=== PATIENT | female | born 1935 ===

== ENCOUNTER 2016-11-07 11:20 | Emergency (ER) | payer MEDICARE ==
[2016-11-07 11:31] VITALS: TEMP 98.1
[2016-11-07 11:33] VITALS: BMI 22.6
[2016-11-07 11:38] VITALS: PULSE 66; RESP 18; O2SAT 98
--- NOTE | 2016-11-07 12:08 | C.PDOC ---
History Of Present Illness 80 y/o female presents to the ED with complains of swelling and pain to left AC area. Pt was in outpatient CT when the IV infiltrated causing pain and swelling , prompting ED visit. Pt denies trauma, fever, numbness, weakness or any other complaints. Time Seen by Provider: 11/07/16 11:44 Chief Complaint (Nursing): Upper Extremity Problem/Injury History Per: Patient History/Exam Limitations: no limitations Onset/Duration Of Symptoms: Mins Current Symptoms Are (Timing): Still Present Quality: "Pain" Severity: Mild Recent travel outside of the [place]: No Past Medical History Reviewed: Historical Data, Nursing Documentation, Vital Signs Vital Signs: Last Vital Signs Temp 98.1 F 11/07/16 11:33 Pulse 66 11/07/16 11:33 Resp 18 11/07/16 11:33 BP 164/81 H 11/07/16 11:33 Pulse Ox 98 11/07/16 12:10 - Medical History PMH: Diabetes, HTN, Hypercholesterolemia Family History: States: Unknown Family Hx - Social History Hx Tobacco Use: No Hx Alcohol Use: No Hx Substance Use: No - Immunization History Hx Tetanus Toxoid Vaccination: Yes Hx Influenza Vaccination: Yes Hx Pneumococcal Vaccination: Yes Review Of Systems Constitutional: Negative for: Fever, Chills Musculoskeletal: Positive for: Other (swelling and pain to left AC area) Neurological: Negative for: Weakness, Numbness Physical Exam - Physical Exam Appears: Non-toxic, No Acute Distress Skin: Warm, Dry, No Rash Head: Atraumatic, Normacephalic Chest: Symmetrical Cardiovascular: Rhythm Regular, No Murmur Respiratory: Normal Breath Sounds, No Rales, No Rhonchi, No Wheezing Extremity: Pedal Edema, Capillary Refill (<2 seconds), Other (IV in left AC with mild surrounding swelling. No erythema or fluctuance) Pulses: Left Radial: Normal Neurological/Psych: Oriented x3, Normal Speech, Normal Motor, Normal Sensation ED Course And Treatment O2 Sat by Pulse Oximetry: 98 (room air) Pulse Ox Interpretation: Normal Medical Decision Making Medical Decision Making: The arm exam appears to have small IV infiltration. Patient was instructed that it will take to re-absorb the fluid. Return to the Ed if there is any worsening. Disposition - Disposition Referrals: Deandre Winters Jr., MD [Staff Provider] - Disposition: HOME/ ROUTINE Disposition Time: 12:32 Condition: FAIR Additional Instructions: Follow up with the medical doctor within 1-2 days without fail. Return if worsened. Prescriptions: traMADol [Ultram] 50 mg PO Q6 PRN #20 tab PRN Reason: Pain Instructions: IV Infiltration (ED) - Clinical Impression Clinical Impression: IV infiltration - PA / FINANCIAL AID COUNSELOR / Resident Statement MD/DO has reviewed & agrees with the documentation as recorded. - Scribe Statement The provider has reviewed the documentation as recorded by the Scribe Austin Escobar All medical record entries made by the Scribe were at my direction and personally dictated by me. I have reviewed the chart and agree that the record accurately reflects my personal performance of the history, physical exam, medical decision making, and the department course for this patient. I have also personally directed, reviewed, and agree with the discharge instructions and disposition.
[2016-11-07] MEDS ORDERED: Oxycodone/Acetaminophen 5/325 mg Tab PO STA (12:21)
[2016-11-07] MEDS ORDERED: Oxycodone/Acetaminophen 5/325 mg Tab ONE (12:27)
[2016-11-07 12:43] VITALS: BP 158/77
== END 2016-11-07 12:45 | disposition home or self-care (01) ==
LOC: C.ER 11:20
DX: T80.89XA Other complications following infusion, transfusion and therapeutic injection, initial encounter (principal); Y84.8 Other medical procedures as the cause of abnormal reaction of the patient, or of later complication, without mention of misadventure at the time of the procedure

== ENCOUNTER 2016-12-06 15:03 | Emergency (ER) | payer MEDICARE ==
[2016-12-07 09:00] LABS: ALB/GLOB RATIO 1.1 (1.0-2.1); ALBUMIN 3.6 g/dL (3.5-5.0); CALCIUM 8.6 mg/dl (8.6-10.4)
[2016-12-07 09:01] LABS: BASO # 0.1 K/uL (0.0-0.2); BASO % 0.8 % (0.0-2.0); EOS # 0.2 K/uL (0.0-0.7); HEMOGLOBIN 12.5 g/dL (11.0-16.0); LYMPH # 1.2 K/uL (1.0-4.3); LYMPH % 14.4 % (20.0-40.0); MEAN CELL VOLUME 85.3 fL (81.0-99.0); MEAN CORPUSCULAR HEMOGLOBIN 28.5 pg (27.0-31.0); MEAN CORPUSCULAR HGB CONC 33.4 g/dL (33.0-37.0); MEAN PLATELET VOLUME 8.5 fL (7.2-11.7); MONO # 0.6 K/uL (0.0-0.8); MONO % 6.9 % (0.0-10.0); NEUT # 6.3 K/uL (1.8-7.0); NEUT % 75.9 % (50.0-75.0); NRBC % 0.1 % (0.0-2.0); RBC 4.38 Mil/uL (3.80-5.20); RED CELL DISTRIBUTION WIDTH 13.2 % (11.5-14.5); WHITE BLOOD COUNT 8.3 K/uL (4.8-10.8)
[2016-12-07 10:03] LABS: BARBITURATES, UR NEGATIVE (NEGATIVE); BENZODIAZEPINES, UR NEGATIVE (NEGATIVE)
[2016-12-07 10:06] LABS: OPIATES, UR NEGATIVE (NEGATIVE)
[2016-12-07 10:07] LABS: PHENCYCLIDINE, UR NEGATIVE (NEGATIVE)
[2016-12-07 10:11] LABS: SQUAMOUS EPITHIAL < 1 /hpf (0-5); URINE BACTERIA FEW (<OCC); URINE BILIRUBIN NEGATIVE (NEGATIVE); URINE BLOOD 1+ (NEGATIVE); URINE CLARITY Clear (Clear); URINE COLOR Yellow (YELLOW); URINE GLUCOSE (UA) 1+ mg/dL (Normal); URINE LEUKOCYTE ESTERASE TRACE Leu/uL (Negative); URINE NITRATE NEGATIVE (NEGATIVE); URINE PROTEIN 2+ mg/dL (NEGATIVE); URINE UROBILINOGEN NORMAL mg/dL (0.2-1.0)
--- NOTE | 2016-12-08 10:07 | CT ---
PROCEDURE: CT Abdomen and Pelvis with Oral contrast. HISTORY: Generalized abdominal pain. COMPARISON: None. TECHNIQUE: This CT exam was performed using one or more of the following dose reduction techniques: Automated exposure control, adjustment of the mA and/or kV according to patient size, and/or use of iterative reconstruction technique. The examination was performed at 5 mm increments using a helical acquisition from the dome of the diaphragm to the pubic symphysis without administration of intravenous contrast. Oral contrast was administered. Iterative reconstruction was used. Radiation dose: Total exam DLP = 636.03 mGy-cm. FINDINGS: Lung bases: There is subsegmental atelectasis/ scarring in the right lung base and lingula. There is dependent atelectasis in the posterior lungs. LIVER: Normal in size. No gross lesion or ductal dilatation. GALLBLADDER AND BILE DUCTS: No calcified gallstones. PANCREAS: Normal in size. No mass. No ductal dilatation. SPLEEN: Normal in size and appearance. ADRENALS: Both adrenal glands are normal in size without discrete nodule. KIDNEYS AND URETERS: Both kidneys are normal in size without hydronephrosis or nephrolithiasis. There is nonspecific perinephric fat stranding. BLADDER: Grossly normal in appearance. REPRODUCTIVE: The uterus is surgically absent. APPENDIX: No inflammatory changes in the right lower quadrant. BOWEL: The small bowel loops are normal in caliber. There is extensive left colonic diverticulosis without CT evidence for acute diverticulitis. PERITONEUM: No fluid collection. No free air. LYMPH NODES: No enlarged lymph nodes. VASCULATURE: There are atherosclerotic aortoiliac calcifications and an endovascular stent graft in the right common iliac artery. . No aortic aneurysm. BONES: No fracture or destructive lesion. Multilevel degenerative disc disease. OTHER FINDINGS: None. IMPRESSION: No acute abdominal or pelvic abnormality. Left colonic diverticulosis without CT evidence for acute diverticulitis. A preliminary report was provided by [facility].
== END 2016-12-06 19:00 | disposition home or self-care (01) ==
LOC: C.ER 15:03
DX: R10.12 Left upper quadrant pain (principal)
CPT/HCPCS: 74177; 80053; 81001; 85025; 96360; 99284; G0480; J7040

== ENCOUNTER 2017-01-02 12:04 | Inpatient (IN) | payer MEDICARE ==
[2017-01-02 12:05] VITALS: BMI 22.6
[2017-01-02 13:23] LABS: BASO # 0.1 K/uL (0.0-0.2); BASO % 0.8 % (0.0-2.0); EOS # 0.2 K/uL (0.0-0.7); EOS % 2.3 % (0.0-4.0); HEMOGLOBIN 11.9 g/dL (11.0-16.0); LYMPH % 11.6 % (20.0-40.0); MEAN CELL VOLUME 85.2 fL (81.0-99.0); MEAN CORPUSCULAR HEMOGLOBIN 29.1 pg (27.0-31.0); MEAN CORPUSCULAR HGB CONC 34.2 g/dL (33.0-37.0); MEAN PLATELET VOLUME 8.4 fL (7.2-11.7); MONO # 0.6 K/uL (0.0-0.8); MONO % 7.8 % (0.0-10.0); NEUT # 6.4 K/uL (1.8-7.0); NEUT % 77.5 % (50.0-75.0); NRBC % 0.2 % (0.0-2.0); RBC 4.09 Mil/uL (3.80-5.20); RED CELL DISTRIBUTION WIDTH 13.2 % (11.5-14.5); WHITE BLOOD COUNT 8.3 K/uL (4.8-10.8)
[2017-01-02 13:31] LABS: PROTHROMBIN TIME 11.3 SECONDS (9.7-12.2)
--- NOTE | 2017-01-02 13:35 | C.PDOC ---
History Of Present Illness 81 year old female, with a history of HTN and diabetes, presents to the emergency department with complaints of hematochezia and abdominal pain since yesterday at 5pm. As per son, patient had complaints of abdominal pain three weeks ago and had a CT scan performed that showed diverticulosis She notes blood in last four bowel movements since yesterday. Patient denies fever, dysuria, or other complaints at this time. Chief Complaint (Nursing): GI Problem History Per: Patient, Family (son) History/Exam Limitations: no limitations Onset/Duration Of Symptoms: Hrs (blood in stool since 5pm yesterday ), Days ( abdominal pain for three weeks) Current Symptoms Are (Timing): Still Present Number Of Bleeding Episodes: Multiple: (4 bowel movements with blood) Quality Of Discomfort: "Pain" Past Medical History Reviewed: Historical Data, Nursing Documentation, Vital Signs Vital Signs: Last Vital Signs Temp 98 F 01/02/17 12:18 Pulse 68 01/02/17 12:18 Resp 18 01/02/17 12:18 BP 145/75 01/02/17 12:18 Pulse Ox 100 01/02/17 14:39 - Medical History PMH: Diabetes, HTN, Hypercholesterolemia Family History: States: Unknown Family Hx - Social History Hx Tobacco Use: No Hx Alcohol Use: No Hx Substance Use: No - Immunization History Hx Tetanus Toxoid Vaccination: Yes Hx Influenza Vaccination: Yes Hx Pneumococcal Vaccination: Yes Review Of Systems Constitutional: Negative for: Fever, Chills Cardiovascular: Negative for: Chest Pain Respiratory: Negative for: Shortness of Breath Gastrointestinal: Positive for: Abdominal Pain, Hematochezia. Negative for: Nausea, Vomiting Physical Exam - Physical Exam Appears: Non-toxic, No Acute Distress Skin: Warm, Dry Head: Atraumatic Eye(s): bilateral: Normal Inspection, PERRL, EOMI Oral Mucosa: Moist Gingiva: Other (sutures to the left lower gingiva ) Neck: Supple Chest: Symmetrical, No Deformity Cardiovascular: Rhythm Regular Respiratory: Normal Breath Sounds, No Rhonchi, No Wheezing Gastrointestinal/Abdominal: Bowel Sounds (good bowel sounds ), Soft, Tenderness (diffuse tenderness concentrated in LLQ), No Distention, No Guarding, No Rebound Rectal: Other (gross blood ) Back: CVA Tenderness (mild left CVA tenderness ), Other (Kyphosis ) Extremity: Normal ROM, No Tenderness, Capillary Refill (good capillary refill, less than 2 seconds), No Swelling Neurological/Psych: Oriented x3, Normal Speech, Normal Cognition, Normal Cranial Nerves, Normal Motor, Normal Sensation, Normal Reflexes Gait: Steady ED Course And Treatment - Laboratory Results Result Diagrams: 01/02/17 13:10 01/02/17 13:10 O2 Sat by Pulse Oximetry: 100 (room air ) Medical Decision Making Medical Decision Making: message left for Dr Peña discussed with Dr Peña; will admit to his service. will call Dr Salazar for GI consult. discussed with Dr Jacome , covering for Dr Salazar. Disposition Discussed With Dr.: Sarbjit Peña Doctor Will See Patient In The: Hospital - Disposition Disposition: HOSPITALIZED Disposition Time: 14:37 Condition: SERIOUS - Clinical Impression Clinical Impression: Acute lower gastrointestinal bleeding, UTI (urinary tract infection), Abdominal pain - Scribe Statement The provider has reviewed the documentation as recorded by the Scribe Jacqueline Plasencia All medical record entries made by the Scribe were at my direction and personally dictated by me. I have reviewed the chart and agree that the record accurately reflects my personal performance of the history, physical exam, medical decision making, and the department course for this patient. I have also personally directed, reviewed, and agree with the discharge instructions and disposition. Decision To Admit - Pt Status Changed To: Hospital Disposition Of: Inpatient - Admit Certification Admit to Inpatient:: After my assessment, the patient will require hospitalization for at least two midnights. This is because of the severity of symptoms shown, intensity of services needed, and/or the medical risk in this patient being treated as an outpatient. - InPatient: Physician Admission Certification: I certify that this patient requires 2 or more midnights of care for the following reason:: gi bleed - . Bed Request Type: Regular Patient Diagnosis: Acute lower gastrointestinal bleeding, UTI (urinary tract infection), Abdominal pain
[2017-01-02 13:57] LABS: ALBUMIN 3.5 g/dL (3.5-5.0)
[2017-01-02 14:00] LABS: CALCIUM 8.6 mg/dl (8.6-10.4)
[2017-01-02 14:06] LABS: SQUAMOUS EPITHIAL 7 /hpf (0-5); URINE BACTERIA OCC (<OCC); URINE BILIRUBIN NEGATIVE (NEGATIVE); URINE BLOOD NEGATIVE (NEGATIVE); URINE CLARITY Hazy (Clear); URINE COLOR Yellow (YELLOW); URINE GLUCOSE (UA) 1+ mg/dL (Normal); URINE HYALINE CAST 0-2 /lpf (0-2); URINE LEUKOCYTE ESTERASE 2+ Leu/uL (Negative); URINE NITRATE NEGATIVE (NEGATIVE); URINE PROTEIN 2+ mg/dL (NEGATIVE); URINE UROBILINOGEN NORMAL mg/dL (0.2-1.0)
--- NOTE | 2017-01-02 17:56 | CP.PCM.CON ---
<Sal Benson - Last Filed: 01/02/17 17:56> History of Present Illness - History of Present Illness History of Present Illness: PGY4 Initial GI consult Dorothy Charlton is a 81M w/ hx of ovarian ca s/p total hysterectomy, HTN, DM, PVD, Diverticulosis who presents to the ED with complains of LLQ pain and BRBPR. Pt states that the pain started 2 months ago. Location LLQ. She states that pain is intermittant, with slight worsening post-prandial. Denies any alleviating factors. Pt states that she came to the Er [address] of the abd was performed and pt was discharged and found to have diverticulosis. Pt was told to take stool softners. Pt states for the past 3 weeks her abd pain has gradually worsened. She states her pain is a 8 out of 10. She then noticed BRBPR yesterday. She states she had x4 BM with BRB mixed in and formed brown stool. Pt denies any previous episode of BRBPR and LLQ pain. Her last colonoscopy was in the 80's or 90's and cannot recall the results. 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, + smoking hx for 30+ years and could quantify amount Endo hx: states that she may have had one in the 80's or 90's unsure of the results Past Patient History - Infectious Disease Hx of Infectious Diseases: None - Past Social History Smoking Status: Never Smoked - CARDIAC Hx Hypercholesterolemia: Yes Hx Hypertension: Yes - ENDOCRINE/METABOLIC Hx Diabetes Mellitus Type 2: Yes - PSYCHIATRIC Hx Substance Use: No - SURGICAL HISTORY Hx Surgeries: Yes Hx Vascular Surgery: Yes - ANESTHESIA Hx Anesthesia: Yes Meds Allergies/Adverse Reactions: Allergies Allergy/AdvReac Type Severity Reaction Status Date / Time cilostazol Allergy Verified 11/07/16 11:40 ramipril AdvReac Severe Verified 11/07/16 11:41 - Medications Medications: Current Medications Amlodipine Besylate (Norvasc) 10 mg PO DAILY [facility] Escitalopram Oxalate (Lexapro) 10 mg PO DAILY [facility] Lisinopril (Zestril) 10 mg PO DAILY [facility] Nitrofurantoin Macrocrystals (Macrobid) 100 mg PO Q12H [facility] Last Admin: 01/02/17 14:54 Dose: 100 mg Pantoprazole Sodium (Protonix Ec Tab) 40 mg PO DAILY [facility] Physical Exam - Head Exam Head Exam: ATRAUMATIC, NORMOCEPHALIC - Eye Exam Eye Exam: Normal appearance - ENT Exam ENT Exam: Mucous Membranes Moist, Normal Exam - Respiratory Exam Respiratory Exam: Clear to Auscultation Bilateral, NORMAL BREATHING PATTERN. absent: Rales, Rhonchi, Wheezes - Cardiovascular Exam Cardiovascular Exam: REGULAR RHYTHM, +S1, +S2 - GI/Abdominal Exam GI & Abdominal Exam: Normal Bowel Sounds. absent: Distended, Guarding, Organomegaly, Rebound, Rigid - Extremities Exam Extremities exam: Positive for: normal inspection - Neurological Exam Neurological exam: Alert, Oriented x3 - Psychiatric Exam Psychiatric exam: Normal Affect, Normal Mood - Skin Skin Exam: Dry, Intact, Normal Color, Warm Results - Vital Signs Recent Vital Signs: Last Vital Signs Temp 98.8 F 01/02/17 15:39 Pulse 66 01/02/17 15:39 Resp 20 01/02/17 15:39 BP 133/72 01/02/17 15:39 Pulse Ox 100 01/02/17 15:39 - Labs Result Diagrams: 01/02/17 13:10 01/02/17 13:10 Labs: Laboratory Results - last 24 hr 01/02/17 16:41 POC Glucose (mg/dL) 145 H Assessment & Plan - Assessment and Plan (Free Text) Assessment: Dorothy Charlton is a 81F w/ hx of PVD and diverticulosis who presents with abd pain and BRBPR. Etiology included diverticular bleed with/without some degree of diverticulitis, ischemic colitis, AVM, hemorrhoidal Assessment: Abd pain, LLQ Lower GI bleed hx of constipation Plan clear liquid diet for now hgb stable around 11 repeat cbc in the AM no need for repeat Ct abd at this time, if abd pain worsened or pt becomes febrile, may order a Ct of abd to eval w/o IV contrast If bleeding worsened will consider an inpt colonoscopy Observe for now Continue Protonix 40mg daily Hold all anticoag and ASA for now Pain management as per primary team D/W Dr. Fields <Sudhir Fields - Last Filed: 01/02/17 19:34> Meds - Medications Medications: Current Medications Amlodipine Besylate (Norvasc) 10 mg PO DAILY [facility] Escitalopram Oxalate (Lexapro) 10 mg PO DAILY [facility] Lisinopril (Zestril) 10 mg PO DAILY [facility] Nitrofurantoin Macrocrystals (Macrobid) 100 mg PO Q12H [facility] Last Admin: 01/02/17 14:54 Dose: 100 mg Pantoprazole Sodium (Protonix Ec Tab) 40 mg PO DAILY [facility] Results - Vital Signs Recent Vital Signs: Last Vital Signs Temp 98.8 F 01/02/17 15:39 Pulse 66 01/02/17 15:39 Resp 20 01/02/17 15:39 BP 133/72 01/02/17 15:39 Pulse Ox 100 01/02/17 19:10 - Labs Result Diagrams: 01/02/17 18:00 01/02/17 13:10 Labs: Laboratory Results - last 24 hr 01/02/17 01/02/17 16:41 18:00 WBC 8.1 RBC 3.92 Hgb 11.2 Hct 33.5 L MCV 85.5 MCH 28.6 MCHC 33.4 RDW 13.1 Plt Count 229 MPV 8.2 POC Glucose (mg/dL) 145 H Attending/Attestation - Attestation I have personally seen and examined this patient.: Yes I have fully participated in the care of the patient.: Yes I have reviewed all pertinent clinical information: Yes Notes (Text): 01/02/17 19:32 81 year old female who presents with LLQ pain and rectal bleeding, with h/o diverticulosis. 1. Rectal bleeding 2. Diverticulosis 3. Constipation Plan: -recommend supportive measures -bleeding seems to be mild, hgb normal -monitor for further bleeding -monitor serial cbc -possible diverticular bleed vs hemorrhoids -bowel regimen -recent CT without diverticulitis -no fever/wbc -abdominal exam unremarkable -will follow
[2017-01-02 18:19] LABS: HEMOGLOBIN 11.2 g/dL (11.0-16.0); MEAN CELL VOLUME 85.5 fL (81.0-99.0); MEAN CORPUSCULAR HEMOGLOBIN 28.6 pg (27.0-31.0); MEAN CORPUSCULAR HGB CONC 33.4 g/dL (33.0-37.0); MEAN PLATELET VOLUME 8.2 fL (7.2-11.7); RBC 3.92 Mil/uL (3.80-5.20); RED CELL DISTRIBUTION WIDTH 13.1 % (11.5-14.5); WHITE BLOOD COUNT 8.1 K/uL (4.8-10.8)
--- NOTE | 2017-01-02 22:31 | CP.PCM.CON ---
History of Present Illness - History of Present Illness History of Present Illness: REASON FOR CONSULT : CKD WITH eGFR AROUND 40 ML/M METABOLIC BONE DISEASE AND 2NDARY HYPERPARATHYROIDISM I SAW PT IN ER .. D/W HER SON AT LENGTH .. REASSURED HIM ABOUT THE RENAL FUNCTION AND STABLE LABS PT IS WELL KNOWN TO ME FROM OFFICE VISSITS FOR MILD CKD .. BASELINE eGFR ABOUT 40 ML/M RENAL FUNCTION IS AT BASELINE oDrothy Charlton is a 81M w/ hx of ovarian ca s/p total hysterectomy, HTN, DM, PVD, Diverticulosis who presents to the ED with complains of LLQ pain and BRBPR. Pt states that the pain started 2 months ago. Location LLQ. She states that pain is intermittant, with slight worsening post-prandial. Denies any alleviating factors. Pt states that she came to the Er [address] of the abd was performed and pt was discharged and found to have diverticulosis. Pt was told to take stool softners. Pt states for the past 3 weeks her abd pain has gradually worsened. She states her pain is a 8 out of 10. She then noticed BRBPR yesterday. She states she had x4 BM with BRB mixed in and formed brown stool. Pt denies any previous episode of BRBPR and LLQ pain. Her last colonoscopy was in the 80's or 90's and cannot recall the results. 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, + smoking hx for 30+ years and could quantify amount Endo hx: states that she may have had one in the 80's or 90's unsure of the results Past Patient History - Infectious Disease Hx of Infectious Diseases: None - Past Medical History & Family History Past Medical History?: Yes - Past Social History Smoking Status: Never Smoked - CARDIAC Hx Hypercholesterolemia: Yes Hx Hypertension: Yes - ENDOCRINE/METABOLIC Hx Diabetes Mellitus Type 2: Yes - MUSCULOSKELETAL/RHEUMATOLOGICAL Hx Falls: No - PSYCHIATRIC Hx Substance Use: No - SURGICAL HISTORY Hx Surgeries: Yes Hx Vascular Surgery: Yes - ANESTHESIA Hx Anesthesia: Yes Hx Anesthesia Reactions: No Meds Allergies/Adverse Reactions: Allergies Allergy/AdvReac Type Severity Reaction Status Date / Time cilostazol Allergy Verified 11/07/16 11:40 ramipril AdvReac Severe Verified 11/07/16 11:41 - Medications Medications: Current Medications Amlodipine Besylate (Norvasc) 10 mg PO DAILY [facility] Escitalopram Oxalate (Lexapro) 10 mg PO DAILY [facility] Lisinopril (Zestril) 10 mg PO DAILY [facility] Nitrofurantoin Macrocrystals (Macrobid) 100 mg PO Q12H [facility] Last Admin: 01/02/17 14:54 Dose: 100 mg Pantoprazole Sodium (Protonix Ec Tab) 40 mg PO DAILY [facility] Results - Vital Signs Recent Vital Signs: Last Vital Signs Temp 98.8 F 01/02/17 15:39 Pulse 66 01/02/17 15:39 Resp 20 01/02/17 15:39 BP 133/72 01/02/17 15:39 Pulse Ox 100 01/02/17 19:10 - Labs Result Diagrams: 01/02/17 18:00 01/02/17 13:10 Labs: Laboratory Results - last 24 hr 01/02/17 01/02/17 01/02/17 16:41 18:00 21:04 WBC 8.1 RBC 3.92 Hgb 11.2 Hct 33.5 L MCV 85.5 MCH 28.6 MCHC 33.4 RDW 13.1 Plt Count 229 MPV 8.2 POC Glucose (mg/dL) 145 H 175 H Assessment & Plan - Assessment and Plan (Free Text) Assessment: CKD .. RENAL FUNCTION STABLE .. eGFR AT HER BASELINE GI BLEED MULTIPLE CO MORBIDITIES P : C/O CURRENT CARE C/O PRESENT MEDS AVOID NEPHROTOXIC MEDS/ AGENTS DOSE MEDS AT eGFR OF 40 ML/M
--- NOTE | 2017-01-02 23:48 | CP.PCM.HP ---
History of Present Illness - History of Present Illness History of Present Illness: CC: per rectal bleed HPI: Dorothy Charlton is a 81M w/ hx of ovarian ca s/p total hysterectomy, HTN, DM, PVD,h/o pripr CVA, Diverticulosis who presents to the ED with complains of LLQ pain and BRBPR. Pt states that the pain started 2 months ago. Location LLQ. She states that pain is intermittant, with slight worsening post-prandial. Denies any alleviating factors. Pt states that she came to the Er [address] of the abd was performed and pt was discharged and found to have diverticulosis. Pt was told to take stool softners. Pt states for the past 3 weeks her abd pain has gradually worsened. She states her pain is a 8 out of 10. She then noticed BRBPR yesterday. She states she had x4 BM with BRB mixed in and formed brown stool. Pt denies any previous episode of BRBPR and LLQ pain. Her last colonoscopy was in the 80's or 90's and cannot recall the results. 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 [employer], denies Etoh and illicit drugs, + smoking hx for 30+ years and could quantify amount Endo hx: states that she may have had one in the 80's or 90's unsure of the results Present on Admission - Present on Admission Any Indicators Present on Admission: Yes Review of Systems - Review of Systems Systems not reviewed;Unavailable: Acuity of Condition - Constitutional Constitutional: Fatigue, Lethargy - EENT Eyes: absent: As Per HPI, Blind Spots, Blurred Vision, Change in Vision, Decreased Night Vision, Diplopia, Discharge, Dry Eye, Exophthalmos, Floaters, Irritation, Itchy Eyes, Loss of Peripheral Vision, Pain, Photophobia, Requires Corrective Lenses, Sees Flashes, Spots in Vision, Tunnel Vision, Other Visual Disturbances, Loss of Vision, Other Ears: absent: As Per HPI, Decreased Hearing, Ear Discharge, Ear Pain, Tinnitus, Abnormal Hearing, Disequilibrium, Dizziness, Other - Gastrointestinal Gastrointestinal: Abdominal Pain, Hematochezia. absent: As Per HPI, Belching, Bloating, Change in Bowel Habits, Change in Stool Character, Coffee Ground Emesis, Constipation, Cramping, Diarrhea, Dyspepsia, Dysphagia, Early Satiety, Excessive Flatus, Fecal Incontinence, Heartburn, Hematemesis, Loose Stools, Melena, Nausea, Odynophagia, Temesmus, Vomiting, Other - Genitourinary Genitourinary: absent: As Per HPI, Change in Urinary Stream, Difficulty Urinating, Dysuria, Flank Pain, Hematuria, Pyuria, Nocturia, Urinary Incontinence, Urinary Frequency, Urinary Hesitance, Urinary Urgency, Voiding Freq/Small Amts, Freq UTI, Hx Renal/Bladder Calculi, Hx /Renal Surgery, Bladder Distension, Other - Reproductive: Female Reproductive:Female: absent: As Per HPI, Amenorrhea, Amenorrhea/ Control, Currently Menstual, Cycle <21 Days, Cycle >35 Days, Cycle Variable, Menses 1-7 Days, Menses >/= 8 Days, Menses Variable, Cycle > 4 Weeks Between, No Menses for 6 Months, Heavy Menses, Light Menses, Normal Menses, Spotting Between Cycles , S/P Hysterectomy, Menopausal, Post Menopausal, Premenarche, Abnormal Vaginal Bleeding, Dysmenorrhea, Dyspareunia, Genital Lesions, Genital Pruritis, Pelvic Pain, Prolapse Symptoms, Sexual Dysfunction, Vaginal Discharge, Vaginal Dryness , Vaginal Odor, Vaginal Pruritis, Other - Endocrine Endocrine: absent: As Per HPI, Change in Body Appearance, Change in Libido, Cold Intolorance, Deepening of Voice, Excessive Sweating, Fatigue, Flushing, Heat Intolorance, Increase in Ring/Shoe/Hat Size, Palpitations, Polydipsia, Polyphagia, Polyuria, Other - Hematologic/Lymphatic Hematologic: absent: As Per HPI, Easy Bleeding, Easy Bruising, Lymphadenopathy, Other Past Patient History - Infectious Disease Hx of Infectious Diseases: None - Past Medical History & Family History Past Medical History?: Yes - Past Social History Smoking Status: Never Smoked - CARDIAC Hx Hypercholesterolemia: Yes Hx Hypertension: Yes - ENDOCRINE/METABOLIC Hx Diabetes Mellitus Type 2: Yes - MUSCULOSKELETAL/RHEUMATOLOGICAL Hx Falls: No - PSYCHIATRIC Hx Substance Use: No - SURGICAL HISTORY Hx Surgeries: Yes Hx Vascular Surgery: Yes - ANESTHESIA Hx Anesthesia: Yes Hx Anesthesia Reactions: No Meds Home Medications: Home Medication List Medication Instructions Recorded Confirmed Type Zolpidem [Ambien] 5 mg PO HS PRN #10 tab 01/05/17 Rx Allergies/Adverse Reactions: Allergies Allergy/AdvReac Type Severity Reaction Status Date / Time cilostazol Allergy Verified 11/07/16 11:40 ramipril AdvReac Severe Verified 11/07/16 11:41 Physical Exam - Constitutional Appears: No Acute Distress, Chronically Ill - Head Exam Head Exam: ATRAUMATIC, NORMAL INSPECTION, NORMOCEPHALIC - Eye Exam Eye Exam: EOMI, Normal appearance, PERRL Pupil Exam: NORMAL ACCOMODATION, PERRL - Respiratory Exam Respiratory Exam: Clear to Auscultation Bilateral, NORMAL BREATHING PATTERN - Cardiovascular Exam Cardiovascular Exam: REGULAR RHYTHM - GI/Abdominal Exam GI & Abdominal Exam: Normal Bowel Sounds, Soft. absent: Tenderness - Rectal Exam Additional comments: per rectal bleeding Results - Vital Signs Recent Vital Signs: Last Vital Signs Temp 98.5 F 01/02/17 16:35 Pulse 62 01/02/17 16:35 Resp 18 01/02/17 16:35 BP 145/89 01/02/17 16:35 Pulse Ox 100 01/02/17 19:10 - Labs Result Diagrams: 01/04/17 08:24 01/04/17 08:24 Labs: Laboratory Results - last 24 hr 01/02/17 01/02/17 01/02/17 16:41 18:00 21:04 WBC 8.1 RBC 3.92 Hgb 11.2 Hct 33.5 L MCV 85.5 MCH 28.6 MCHC 33.4 RDW 13.1 Plt Count 229 MPV 8.2 POC Glucose (mg/dL) 145 H 175 H Assessment & Plan (1) Bleeding per rectum Status: Acute (2) Abdominal pain Status: Acute (3) Acute lower gastrointestinal bleeding Assessment and Plan: HIDA sacn CT abdomen monitor pt on antibiotics Status: Acute
[2017-01-03 07:09] LABS: HEMOGLOBIN 11.3 g/dL (11.0-16.0); MEAN CELL VOLUME 85.6 fL (81.0-99.0); MEAN CORPUSCULAR HEMOGLOBIN 28.6 pg (27.0-31.0); MEAN CORPUSCULAR HGB CONC 33.4 g/dL (33.0-37.0); MEAN PLATELET VOLUME 8.3 fL (7.2-11.7); RBC 3.93 Mil/uL (3.80-5.20); RED CELL DISTRIBUTION WIDTH 13.4 % (11.5-14.5); WHITE BLOOD COUNT 9.3 K/uL (4.8-10.8)
[2017-01-03] MEDS: Pantoprazole 40 mg EC Tab PO SCH (09:54)
--- NOTE | 2017-01-03 13:57 | CP.PCM.PN ---
<Obinna Berger - Last Filed: 01/03/17 14:03> Subjective - Date & Time of Evaluation Date of Evaluation: 01/03/17 Time of Evaluation: 12:00 - Subjective Subjective: PGY5 GI Fellow Progress Note Patient seen and examined bedside this morning. The patient states that she is feeling better today and has not noted any BRBPR since last night. No new complaints. 12 system ROS performed and negative except where stated. Objective - Vital Signs/Intake and Output Vital Signs (last 24 hours): Temp Pulse Resp BP Pulse Ox 98.8 F 69 20 128/79 98 01/03/17 09:00 01/03/17 09:00 01/03/17 09:00 01/03/17 09:00 01/03/17 09:00 Intake and Output: 01/03/17 01/03/17 06:59 18:59 Intake Total 240 Balance 240 - Medications Medications: Current Medications Amlodipine Besylate (Norvasc) 10 mg PO DAILY [facility] Last Admin: 01/03/17 09:53 Dose: 10 mg Escitalopram Oxalate (Lexapro) 10 mg PO DAILY [facility] Last Admin: 01/03/17 09:53 Dose: 10 mg Insulin Aspart (Novolog) 0 unit SC ACHS [facility] PRN Reason: Protocol Lisinopril (Zestril) 10 mg PO DAILY [facility] Last Admin: 01/03/17 09:53 Dose: 10 mg Nitrofurantoin Macrocrystals (Macrobid) 100 mg PO Q12 [facility] Last Admin: 01/03/17 09:53 Dose: 100 mg Pantoprazole Sodium (Protonix Ec Tab) 40 mg PO DAILY [facility] Last Admin: 01/03/17 09:54 Dose: 40 mg - Labs Labs: 01/03/17 06:56 PT 11.3 SECONDS (9.7-12.2) 01/02/17 13:10 INR 1.0 01/02/17 13:10 APTT 27 SECONDS (21-34) 01/02/17 13:10 - Constitutional Appears: Non-toxic, No Acute Distress - Eye Exam Eye Exam: EOMI, PERRL - ENT Exam ENT Exam: Mucous Membranes Moist - Respiratory Exam Respiratory Exam: Clear to Ausculation Bilateral. absent: Rales, Rhonchi, Wheezes - Cardiovascular Exam Cardiovascular Exam: RRR, +S1, +S2 - GI/Abdominal Exam GI & Abdominal Exam: Soft, Normal Bowel Sounds. absent: Distended, Firm, Guarding, Rigid, Tenderness, Organomegaly - Extremities Exam Extremities Exam: Normal Inspection. absent: Pedal Edema - Neurological Exam Neurological Exam: Alert, Awake, Oriented x3 - Psychiatric Exam Psychiatric exam: Normal Affect, Normal Mood - Skin Skin Exam: Dry, Warm Assessment and Plan - Assessment and Plan (Free Text) Assessment: Patient is a 81yo female with PMHx significant for ovarian cancer s/p total hysterectomy, HTN, DM, PVD, diverticulosis who presented to the ED with LLQ pain and BRBPR -Hematochezia, suspect acute diverticular bleding -Diverticulosis -Constipation -H/O ovarian cancer Plan: -Continue supportive measures -HGB stable, unchanged over one month span -Recommend Miralax 17g PO QD -No need for repeat CT scan -Abdominal exam remains unchanged, unremarkable -Advance diet as tolerated, augment fiber intake -Likely OK to D/C tomorrow if patient remains stable <David Lombardi MD - Last Filed: 01/03/17 16:15> Objective - Vital Signs/Intake and Output Vital Signs (last 24 hours): Temp Pulse Resp BP Pulse Ox 98.8 F 69 20 128/79 98 01/03/17 09:00 01/03/17 09:00 01/03/17 09:00 01/03/17 09:00 01/03/17 09:00 Intake and Output: 01/03/17 01/03/17 06:59 18:59 Intake Total 240 Balance 240 - Medications Medications: Current Medications Amlodipine Besylate (Norvasc) 10 mg PO DAILY [facility] Last Admin: 01/03/17 09:53 Dose: 10 mg Escitalopram Oxalate (Lexapro) 10 mg PO DAILY [facility] Last Admin: 01/03/17 09:53 Dose: 10 mg Insulin Aspart (Novolog) 0 unit SC ACHS [facility] PRN Reason: Protocol Lisinopril (Zestril) 10 mg PO DAILY [facility] Last Admin: 01/03/17 09:53 Dose: 10 mg Nitrofurantoin Macrocrystals (Macrobid) 100 mg PO Q12 [facility] Pantoprazole Sodium (Protonix Ec Tab) 40 mg PO DAILY [facility] Last Admin: 01/03/17 09:54 Dose: 40 mg - Labs Labs: 01/03/17 06:56 PT 11.3 SECONDS (9.7-12.2) 01/02/17 13:10 INR 1.0 01/02/17 13:10 APTT 27 SECONDS (21-34) 01/02/17 13:10 Attending/Attestation - Attestation I have personally seen and examined this patient.: Yes I have fully participated in the care of the patient.: Yes I have reviewed all pertinent clinical information, including history, physical exam and plan: Yes Notes (Text): 01/03/17 16:13 Patient seen with GI fellow. This is a 81 yo female with PMHx significant for ovarian cancer s/p total hysterectomy, HTN, DM, PVD, diverticulosis who presented to the ED with LLQ pain and BRBPR now resolving. Likely diverticular bleed which is self resolving. Hb/Hct stable. Advance diet as tolerated. Will sign off now. Thank you for letting us participate in the care of your patient
[2017-01-03 17:32] LABS: HEMOGLOBIN 11.5 g/dL (11.0-16.0); MEAN CELL VOLUME 85.1 fL (81.0-99.0); MEAN CORPUSCULAR HEMOGLOBIN 28.5 pg (27.0-31.0); MEAN CORPUSCULAR HGB CONC 33.5 g/dL (33.0-37.0); MEAN PLATELET VOLUME 8.4 fL (7.2-11.7); RBC 4.03 Mil/uL (3.80-5.20); RED CELL DISTRIBUTION WIDTH 13.3 % (11.5-14.5); WHITE BLOOD COUNT 11.1 K/uL (4.8-10.8)
[2017-01-03] MEDS: (Novolog) Insulin Aspart, Recombinant 100 u/ml 10 ml vial SC SCH ×2 (17:48→21:48)
--- NOTE | 2017-01-03 22:45 | CP.PCM.PN ---
Subjective - Date & Time of Evaluation Date of Evaluation: 01/03/17 Time of Evaluation: 20:00 - Subjective Subjective: Pt seen and examined, is not currently bleeding H and H is stable at 11 i discussed with son, i hold hist aspirin, plavix and asked him to go to his PMD for further management of antiplatelet therapy Objective - Vital Signs/Intake and Output Vital Signs (last 24 hours): Temp Pulse Resp BP Pulse Ox 98.4 F 74 20 110/70 96 01/03/17 16:00 01/03/17 16:00 01/03/17 16:00 01/03/17 16:00 01/03/17 16:00 - Medications Medications: Current Medications Amlodipine Besylate (Norvasc) 10 mg PO DAILY [facility] Last Admin: 01/03/17 09:53 Dose: 10 mg Escitalopram Oxalate (Lexapro) 10 mg PO DAILY [facility] Last Admin: 01/03/17 09:53 Dose: 10 mg Insulin Aspart (Novolog) 0 unit SC ACHS [facility] PRN Reason: Protocol Last Admin: 01/03/17 21:48 Dose: 5 unit Lisinopril (Zestril) 10 mg PO DAILY [facility] Last Admin: 01/03/17 09:53 Dose: 10 mg Nitrofurantoin Macrocrystals (Macrobid) 100 mg PO Q12 [facility] Pantoprazole Sodium (Protonix Ec Tab) 40 mg PO DAILY [facility] Last Admin: 01/03/17 09:54 Dose: 40 mg Zolpidem Tartrate (Ambien) 5 mg PO HS PRN PRN Reason: Insomnia Last Admin: 01/03/17 22:18 Dose: 5 mg - Labs Labs: 01/03/17 17:23 PT 11.3 SECONDS (9.7-12.2) 01/02/17 13:10 INR 1.0 01/02/17 13:10 APTT 27 SECONDS (21-34) 01/02/17 13:10 - Constitutional Appears: No Acute Distress - Head Exam Head Exam: ATRAUMATIC, NORMAL INSPECTION, NORMOCEPHALIC - Eye Exam Eye Exam: EOMI, Normal appearance, PERRL Pupil Exam: NORMAL ACCOMODATION, PERRL - ENT Exam ENT Exam: Mucous Membranes Moist, Normal Exam - Cardiovascular Exam Cardiovascular Exam: REGULAR RHYTHM, +S1, +S2. absent: Murmur - GI/Abdominal Exam GI & Abdominal Exam: Soft, Normal Bowel Sounds. absent: Tenderness Assessment and Plan (1) Abdominal pain Status: Acute (2) Acute lower gastrointestinal bleeding Status: Acute (3) Bleeding per rectum Status: Acute (4) Diverticulosis Status: Acute
--- NOTE | 2017-01-03 22:46 | CP.PCM.PN ---
Subjective - Date & Time of Evaluation Date of Evaluation: 01/03/17 Time of Evaluation: 16:00 - Subjective Subjective: SEEN ON RENAL F/U ALL PREVIOUS EMR REVIEWED FEELS MUVH BETTER REPORTS NO MORE RECTEL BLEEDING .. NO MORE CRAMPY ABDO PAIN RENAL FUNCTION STABLE .. Objective - Vital Signs/Intake and Output Vital Signs (last 24 hours): Temp Pulse Resp BP Pulse Ox 98.4 F 74 20 110/70 96 01/03/17 16:00 01/03/17 16:00 01/03/17 16:00 01/03/17 16:00 01/03/17 16:00 - Medications Medications: Current Medications Amlodipine Besylate (Norvasc) 10 mg PO DAILY [facility] Last Admin: 01/03/17 09:53 Dose: 10 mg Escitalopram Oxalate (Lexapro) 10 mg PO DAILY [facility] Last Admin: 01/03/17 09:53 Dose: 10 mg Insulin Aspart (Novolog) 0 unit SC ACHS [facility] PRN Reason: Protocol Last Admin: 01/03/17 21:48 Dose: 5 unit Lisinopril (Zestril) 10 mg PO DAILY [facility] Last Admin: 01/03/17 09:53 Dose: 10 mg Nitrofurantoin Macrocrystals (Macrobid) 100 mg PO Q12 [facility] Pantoprazole Sodium (Protonix Ec Tab) 40 mg PO DAILY [facility] Last Admin: 01/03/17 09:54 Dose: 40 mg Zolpidem Tartrate (Ambien) 5 mg PO HS PRN PRN Reason: Insomnia Last Admin: 01/03/17 22:18 Dose: 5 mg - Labs Labs: 01/03/17 17:23 PT 11.3 SECONDS (9.7-12.2) 01/02/17 13:10 INR 1.0 01/02/17 13:10 APTT 27 SECONDS (21-34) 01/02/17 13:10 Assessment and Plan - Assessment and Plan (Free Text) Assessment: CKD .. STAGE 3 .. RENAL FUNCTION STABLE LOWER GIB .. BRBPR .. APPARENTLY STOPPED MULTIPLE CO MORBIDITIES P : C/O CURRENT CARE C/O PRESENT MANAGEMENT C/O ACEI FOR RENAL PROTECTIVE EFFECT
[2017-01-03 23:10] LABS: HEMOGLOBIN 10.6 g/dL (11.0-16.0); MEAN CELL VOLUME 84.9 fL (81.0-99.0); MEAN CORPUSCULAR HEMOGLOBIN 28.6 pg (27.0-31.0); MEAN CORPUSCULAR HGB CONC 33.7 g/dL (33.0-37.0); MEAN PLATELET VOLUME 8.5 fL (7.2-11.7); RBC 3.71 Mil/uL (3.80-5.20); RED CELL DISTRIBUTION WIDTH 12.8 % (11.5-14.5); WHITE BLOOD COUNT 11.2 K/uL (4.8-10.8)
[2017-01-04] MEDS: (Novolog) Insulin Aspart, Recombinant 100 u/ml 10 ml vial SC SCH ×4 (07:51→22:10)
[2017-01-04 08:37] LABS: HEMOGLOBIN 11.3 g/dL (11.0-16.0); MEAN CELL VOLUME 85.3 fL (81.0-99.0); MEAN CORPUSCULAR HEMOGLOBIN 28.9 pg (27.0-31.0); MEAN CORPUSCULAR HGB CONC 33.9 g/dL (33.0-37.0); MEAN PLATELET VOLUME 8.5 fL (7.2-11.7); RBC 3.9 Mil/uL (3.80-5.20); WHITE BLOOD COUNT 8.5 K/uL (4.8-10.8)
[2017-01-04 08:50] LABS: CALCIUM 8.6 mg/dl (8.6-10.4)
[2017-01-04] MEDS: Pantoprazole 40 mg EC Tab PO SCH (10:30)
--- NOTE | 2017-01-04 22:26 | CP.PCM.PN ---
Subjective - Date & Time of Evaluation Date of Evaluation: 01/04/17 Time of Evaluation: 16:00 - Subjective Subjective: Patient is seen and examined. Awake, alert, able to eat fair. Hemoglobin >10.0, no active bleeding, cleared by GI for discharge. Daughter at the bedside. Arranged for home care, home PT. Discharged home tommorow Advised to follow up in the office in 1 week. Objective - Vital Signs/Intake and Output Vital Signs (last 24 hours): Temp Pulse Resp BP Pulse Ox 98.9 F 62 20 108/63 98 01/04/17 15:00 01/04/17 15:00 01/04/17 15:00 01/04/17 15:00 01/04/17 15:00 Intake and Output: 01/04/17 01/05/17 18:59 06:59 Intake Total 0 Balance 0 - Medications Medications: Current Medications Amlodipine Besylate (Norvasc) 10 mg PO DAILY [facility] Last Admin: 01/04/17 10:32 Dose: Not Given Escitalopram Oxalate (Lexapro) 10 mg PO DAILY [facility] Last Admin: 01/04/17 10:29 Dose: 10 mg Insulin Aspart (Novolog) 0 unit SC ACHS [facility] PRN Reason: Protocol Last Admin: 01/04/17 22:10 Dose: Not Given Lisinopril (Zestril) 10 mg PO DAILY [facility] Last Admin: 01/04/17 10:30 Dose: 10 mg Nitrofurantoin Macrocrystals (Macrobid) 100 mg PO Q12 [facility] Pantoprazole Sodium (Protonix Ec Tab) 40 mg PO DAILY [facility] Last Admin: 01/04/17 10:30 Dose: 40 mg Zolpidem Tartrate (Ambien) 5 mg PO HS PRN PRN Reason: Insomnia Last Admin: 01/03/17 22:18 Dose: 5 mg - Labs Labs: 01/04/17 08:24 01/04/17 08:24 PT 11.3 SECONDS (9.7-12.2) 01/02/17 13:10 INR 1.0 01/02/17 13:10 APTT 27 SECONDS (21-34) 01/02/17 13:10 - Constitutional Appears: No Acute Distress - Head Exam Head Exam: ATRAUMATIC, NORMAL INSPECTION, NORMOCEPHALIC - Eye Exam Eye Exam: EOMI, Normal appearance, PERRL Pupil Exam: NORMAL ACCOMODATION, PERRL - Respiratory Exam Respiratory Exam: Clear to Ausculation Bilateral, NORMAL BREATHING PATTERN - Cardiovascular Exam Cardiovascular Exam: REGULAR RHYTHM, +S1, +S2. absent: Murmur - GI/Abdominal Exam GI & Abdominal Exam: Soft, Normal Bowel Sounds. absent: Tenderness Assessment and Plan (1) Abdominal pain Status: Acute (2) Acute lower gastrointestinal bleeding Status: Acute (3) Bleeding per rectum Status: Acute (4) Diverticulosis Status: Acute
[2017-01-05 00:45] VITALS: PULSE 63
[2017-01-05 08:20] VITALS: BP 116/67; RESP 21; TEMP 98; O2SAT 97
[2017-01-05] MEDS: (Novolog) Insulin Aspart, Recombinant 100 u/ml 10 ml vial SC SCH ×2 (08:22→11:42)
[2017-01-05] MEDS: Pantoprazole 40 mg EC Tab PO SCH (09:36)
--- NOTE | 2017-01-05 17:56 | CP.PCM.PN ---
Subjective - Date & Time of Evaluation Date of Evaluation: 01/05/17 Time of Evaluation: 11:00 - Subjective Subjective: Awake, alert, no acute distress or chest pains. Objective - Vital Signs/Intake and Output Vital Signs (last 24 hours): Temp Pulse Resp BP Pulse Ox 98 F 63 21 116/67 97 01/05/17 08:19 01/05/17 08:19 01/05/17 08:19 01/05/17 08:19 01/05/17 08:19 Intake and Output: 01/05/17 01/05/17 06:59 18:59 Intake Total 100 Balance 100 - Labs Labs: 01/04/17 08:24 01/04/17 08:24 PT 11.3 SECONDS (9.7-12.2) 01/02/17 13:10 INR 1.0 01/02/17 13:10 APTT 27 SECONDS (21-34) 01/02/17 13:10 Assessment and Plan - Assessment and Plan (Free Text) Assessment: Patient is seen and examined. Awake, alert, able to eat fair. Hemoglobin >10.0, no active bleeding, cleared by GI for discharge. Daughter at the bedside. Arranged for home care, home PT. Discharged home as per DR Peña. Advised to follow up in the office in 1 week.
--- NOTE | 2017-01-05 23:44 | CP.PCM.DIS ---
Provider - Provider Date of Admission: 01/02/17 14:33 Attending physician: Sarbjit Peña MD Time Spent in preparation of Discharge (in minutes): 45 Hospital Course - Lab Results Lab Results: Most Recent Lab Values WBC 8.5 K/uL (4.8-10.8) 01/04/17 08:24 RBC 3.90 Mil/uL (3.80-5.20) 01/04/17 08:24 Hgb 11.3 g/dL (11.0-16.0) 01/04/17 08:24 Hct 33.3 % (34.0-47.0) L 01/04/17 08:24 MCV 85.3 fL (81.0-99.0) 01/04/17 08:24 MCH 28.9 pg (27.0-31.0) 01/04/17 08:24 MCHC 33.9 g/dL (33.0-37.0) 01/04/17 08:24 RDW 13.0 % (11.5-14.5) 01/04/17 08:24 Plt Count 239 K/uL (130-400) 01/04/17 08:24 MPV 8.5 fL (7.2-11.7) 01/04/17 08:24 Neut % (Auto) 77.5 % (50.0-75.0) H 01/02/17 13:10 Lymph % (Auto) 11.6 % (20.0-40.0) L 01/02/17 13:10 [place] % (Auto) 7.8 % (0.0-10.0) 01/02/17 13:10 Eos % (Auto) 2.3 % (0.0-4.0) 01/02/17 13:10 Baso % (Auto) 0.8 % (0.0-2.0) 01/02/17 13:10 Neut # 6.4 K/uL (1.8-7.0) 01/02/17 13:10 Lymph # 1.0 K/uL (1.0-4.3) 01/02/17 13:10 [place] # 0.6 K/uL (0.0-0.8) 01/02/17 13:10 Eos # 0.2 K/uL (0.0-0.7) 01/02/17 13:10 Baso # 0.1 K/uL (0.0-0.2) 01/02/17 13:10 PT 11.3 SECONDS (9.7-12.2) 01/02/17 13:10 INR 1.0 01/02/17 13:10 APTT 27 SECONDS (21-34) 01/02/17 13:10 Sodium 134 mmol/L (132-148) 01/04/17 08:24 Potassium 4.8 mmol/L (3.6-5.2) 01/04/17 08:24 Chloride 98 mmol/L (98-107) 01/04/17 08:24 Carbon Dioxide 25 mmol/L (22-30) 01/04/17 08:24 Anion Gap 16 (10-20) 01/04/17 08:24 BUN 29 mg/dL (7-17) H 01/04/17 08:24 Creatinine 1.6 MG/DL (0.7-1.2) H 01/04/17 08:24 Est GFR ( Amer) 38 01/04/17 08:24 Est GFR (Non-Af Amer) 31 01/04/17 08:24 POC Glucose (mg/dL) 318 mg/dL (65-110) H 01/05/17 11:24 Random Glucose 222 mg/dL (65-105) H 01/04/17 08:24 Calcium 8.6 mg/dl (8.6-10.4) 01/04/17 08:24 Total Bilirubin 0.5 mg/dL (0.2-1.3) 01/02/17 13:10 AST 15 U/L (14-36) 01/02/17 13:10 ALT 19 U/L (9-52) 01/02/17 13:10 Alkaline Phosphatase 98 U/L (38-126) 01/02/17 13:10 Total Protein 6.8 g/dL (6.3-8.3) 01/02/17 13:10 Albumin 3.5 g/dL (3.5-5.0) 01/02/17 13:10 Globulin 3.3 gm/dL (2.2-3.9) 01/02/17 13:10 Albumin/Globulin Ratio 1.0 (1.0-2.1) 01/02/17 13:10 Urine Color Yellow (YELLOW) 01/02/17 13:10 Urine Clarity Hazy (Clear) 01/02/17 13:10 Urine pH 5.0 (5.0-8.0) 01/02/17 13:10 Ur Specific [place] 1.020 (1.003-1.030) 01/02/17 13:10 Urine Protein 2+ mg/dL (NEGATIVE) H 01/02/17 13:10 Urine Glucose (UA) 1+ mg/dL (Normal) 01/02/17 13:10 Urine Ketones Negative mg/dL (NEGATIVE) 01/02/17 13:10 Urine Blood Negative (NEGATIVE) 01/02/17 13:10 Urine Nitrate Negative (NEGATIVE) 01/02/17 13:10 Urine Bilirubin Negative (NEGATIVE) 01/02/17 13:10 Urine Urobilinogen Normal mg/dL (0.2-1.0) 01/02/17 13:10 Ur Leukocyte Esterase 2+ Margy/uL (Negative) H 01/02/17 13:10 Urine WBC (Auto) 80 /hpf (0-5) H 01/02/17 13:10 Urine RBC (Auto) 2 /hpf (0-3) 01/02/17 13:10 Ur Squamous Epith Cells 7 /hpf (0-5) H 01/02/17 13:10 Urine Bacteria Occ (<OCC) H 01/02/17 13:10 Hyaline Casts 0-2 /lpf (0-2) 01/02/17 13:10 Stool Occult Blood Positive (NEGATIVE) H 01/02/17 13:10 Blood Type B POSITIVE 01/02/17 13:10 Antibody Screen Negative 01/02/17 13:10 - Hospital Course Hospital Course: Patient is seen and examined. Awake, alert, able to eat fair. Hemoglobin >10.0, no active bleeding, cleared by GI for discharge. Daughter at the bedside. Arranged for home care, home PT. Discharged home today. Advised to follow up in the office in 1 week. Discharge Exam - Head Exam Head Exam: ATRAUMATIC, NORMOCEPHALIC Discharge Plan - Discharge Medications Prescriptions: Zolpidem [Ambien] 5 mg PO HS PRN #10 tab PRN Reason: Insomnia - Follow Up Plan Condition: SERIOUS Disposition: HOME/ ROUTINE Instructions: Zolpidem (By mouth), Gastrointestinal Bleeding (DC), Diverticulitis (DC), Diverticulosis (DC), Acute Abdominal Pain (DC)
== END 2017-01-05 14:52 | disposition home health service (06) | DRG 378 ==
LOC: C.ER 12:04 → C.9E 14:33 → C.3T 15:53
PROVIDERS: ADMIT Internal Medicine; ATTEND Internal Medicine
DX: K57.31 Diverticulosis of large intestine without perforation or abscess with bleeding (principal); N39.0 Urinary tract infection, site not specified; N25.81 Secondary hyperparathyroidism of renal origin; I12.9 Hypertensive chronic kidney disease with stage 1 through stage 4 chronic kidney disease, or unspecified chronic kidney disease; E11.22 Type 2 diabetes mellitus with diabetic chronic kidney disease; E11.51 Type 2 diabetes mellitus with diabetic peripheral angiopathy without gangrene; N18.3 Chronic kidney disease, stage 3 (moderate); K59.00 Constipation, unspecified; E78.00 Pure hypercholesterolemia, unspecified; Z85.43 Personal history of malignant neoplasm of ovary; Z86.73 Personal history of transient ischemic attack (TIA), and cerebral infarction without residual deficits; Z90.710 Acquired absence of both cervix and uterus

== ENCOUNTER 2017-01-30 12:06 | Inpatient (IN) | payer MEDICARE ==
[2017-01-30 12:06] VITALS: BMI 22.6
[2017-01-30 12:51] LABS: BASO % 0.3 % (0.0-2.0); EOS % 0.1 % (0.0-4.0); HEMATOCRIT 31.9 % (34.0-47.0); LYMPH # 0.2 K/uL (1.0-4.3); LYMPH % 1.5 % (20.0-40.0); MEAN CELL VOLUME 84.8 fL (81.0-99.0); MEAN CORPUSCULAR HEMOGLOBIN 27.7 pg (27.0-31.0); MEAN CORPUSCULAR HGB CONC 32.7 g/dL (33.0-37.0); MEAN PLATELET VOLUME 8.7 fL (7.2-11.7); MONO # 0.7 K/uL (0.0-0.8); MONO % 6.5 % (0.0-10.0); PLATELET COUNT 224 K/uL (130-400); RED CELL DISTRIBUTION WIDTH 13.6 % (11.5-14.5)
[2017-01-30 12:53] LABS: VENOUS BLOOD GAS PCO2 34 mmHg (40-60)
[2017-01-30 12:57] LABS: POTASSIUM 4.5 mmol/L (3.6-5.2)
[2017-01-30 12:59] LABS: BILIRUBIN,TOTAL 0.9 mg/dL (0.2-1.3)
[2017-01-30] MEDS ORDERED: Sodium Chloride 0.9% 500 ML IV ONE ×2 (12:59→13:05)
[2017-01-30 13:00] LABS: ALB/GLOB RATIO 0.9 (1.0-2.1); CALCIUM 8.6 mg/dl (8.6-10.4); TOTAL PROTEIN 6.8 g/dL (6.3-8.3)
[2017-01-30 13:13] LABS: NEUTROPHIL 83 % (50-75); TOTAL CELLS COUNTED 100
[2017-01-30 13:39] LABS: RBC URINE 4 /hpf (0-3); URINE BACTERIA MANY (<OCC); URINE BILIRUBIN NEGATIVE (NEGATIVE); URINE BLOOD 2+ (NEGATIVE); URINE COLOR Yellow (YELLOW); URINE GLUCOSE (UA) 2+ mg/dL (Normal); URINE KETONE NEGATIVE (NEGATIVE); URINE LEUKOCYTE ESTERASE 3+ Leu/uL (Negative); URINE PROTEIN 2+ mg/dL (NEGATIVE); URINE UROBILINOGEN NORMAL mg/dL (0.2-1.0); WBC CLUMPS FEW /hpf; WBC URINE 160 /hpf (0-5)
[2017-01-30] MEDS ORDERED: cefTRIAXone IV 1 gm in Dextros 50 ML IV STA (13:48)
[2017-01-30] MEDS ORDERED: cefTRIAXone IV 1 gm in Dextros 50 ML IVPB ONE (13:59)
--- NOTE | 2017-01-30 14:02 | C.PDOC ---
History Of Present Illness Patient BIBA for evaluation of fever & abdominal pain since thursday. As per son , patient had chills starting thursday, and she has had intermittent abdominal pain for the past 3-4 months. Patient is s/p colonoscopy by Dr. Anayeli Billingsley , study was not completed due to difficulty passing the scope all the way through (as per patient's son). He denies cough, runny nose, vomiting, duiarrhea, SOB. Time Seen by Provider: 01/30/17 12:23 Chief Complaint (Nursing): Weakness/Neurological Deficit History Per: Patient, Family Current Symptoms Are (Timing): Still Present Past Medical History Reviewed: Historical Data, Nursing Documentation, Vital Signs Vital Signs: Last Vital Signs Temp 98.6 F 02/04/17 13:20 Pulse 54 L 02/04/17 13:50 Resp 20 02/04/17 13:50 BP 147/58 L 02/04/17 13:50 Pulse Ox 98 02/04/17 13:50 - Medical History PMH: Diabetes, HTN, Hypercholesterolemia Family History: States: No Known Family Hx - Social History Hx Tobacco Use: No Hx Alcohol Use: No Hx Substance Use: No - Immunization History Hx Tetanus Toxoid Vaccination: Yes Hx Influenza Vaccination: Yes Hx Pneumococcal Vaccination: Yes Review Of Systems Except As Marked, All Systems Reviewed And Found Negative. Constitutional: Positive for: Fever, Chills Cardiovascular: Negative for: Chest Pain Respiratory: Negative for: Cough, Shortness of Breath Gastrointestinal: Positive for: Abdominal Pain. Negative for: Nausea, Vomiting , Diarrhea Skin: Negative for: Rash Physical Exam - Physical Exam Appears: Well, Non-toxic, In Acute Distress (in mild pain) Skin: Normal Color, Warm, Dry Oral Mucosa: Moist Cardiovascular: Rhythm Regular Respiratory: Rales (mild at B/L bases), No Rhonchi, No Wheezing Gastrointestinal/Abdominal: Bowel Sounds, Soft, Tenderness (mild diffuse TTP), No Distention, No Guarding, No Rebound Extremity: Normal ROM, No Pedal Edema ED Course And Treatment - Laboratory Results Result Diagrams: 02/04/17 06:29 02/03/17 11:23 ECG: Interpreted By Me, Viewed By Me (NSR 82 bpm, left axis deviation, LBBB, no acute ST changes) ECG Interpretation: Abnormal O2 Sat by Pulse Oximetry: 96 (RA) Pulse Ox Interpretation: Normal - Other Rad obs series X-Ray: Viewed By Me, Read By Radiologist (no air fluid levels) Progress Note: Blood work, UA, Obstructuve series ordered and reviewed. Patient given IV NS bolus, PO tylenol and IV rocephin. 14:20- Patient c/o itching, has urticarial rash - suspect rocephin allergy. IV rocephin stopped, IV benadryl and IV Ciprofloxacin ordered. - Physician Consult Information Physician Contacted: Sarbjit Peña Outcome Of Conversation: Discussed patient with Dr. Peña, agrees with admission for UTI, fever, dehydration, acute renal failure. Disposition - Disposition Disposition: HOSPITALIZED Disposition Time: 14:07 Condition: STABLE - Clinical Impression Clinical Impression: UTI (urinary tract infection), Acute renal failure, Fever, Dehydration Decision To Admit - Pt Status Changed To: Hospital Disposition Of: Inpatient - Admit Certification Admit to Inpatient:: After my assessment, the patient will require hospitalization for at least two midnights. This is because of the severity of symptoms shown, intensity of services needed, and/or the medical risk in this patient being treated as an outpatient. - InPatient: Physician Admission Certification: I certify that this patient requires 2 or more midnights of care for the following reason:: see notes - . Bed Request Type: Regular Admitting Physician: Sarbjit Peña Patient Diagnosis: UTI (urinary tract infection), Fever, Dehydration, Acute renal failure
--- NOTE | 2017-01-30 14:10 | RAD ---
PROCEDURE: Radiographs of the chest and abdomen (obstructive series) HISTORY: S/P COLONOSCOPY - UPRIGHT CHEST PLEASE COMPARISON: No prior. TECHNIQUE: AP radiograph of the chest, with upright and supine radiographs of the abdomen. FINDINGS: CHEST: Lungs: Clear. Cardiovascular: Normal size heart. No pulmonary vascular congestion. Pleura: No pleural fluid. No pneumothorax. Other findings: None. ABDOMEN AND PELVIS: Bowel: Unremarkable bowel gas pattern. No evidence of mechanical obstruction. Free air: None. Bones: Unremarkable. Other findings: There is an endovascular stent graft in the right common iliac artery. IMPRESSION: 1. Nonobstructive bowel-gas pattern. 2. Clear lungs.
[2017-01-30] MEDS ORDERED: DiphenhydrAMINE 50 mg/ml Inj ONE (14:30)
[2017-01-30] MEDS ORDERED: DiphenhydrAMINE 50 mg/ml Inj IVP STA (14:31)
[2017-01-30] MEDS ORDERED: Ciprofloxacin 400mg/200ml D5W 400 MG/200 ML BAG IV STA (14:34)
[2017-01-30] MEDS ORDERED: Ciprofloxacin 400mg/200ml D5W 400 MG/200 ML BAG IVPB ONE (14:54)
[2017-01-30] MEDS: Oxycodone/Acetaminophen 5/325 mg Tab PO PRN (21:48)
--- NOTE | 2017-01-31 00:23 | CP.PCM.HP ---
History of Present Illness - History of Present Illness History of Present Illness: 81 y/o hf with dm, htn ch. abdominal pain, she is s/p colonoscopy that was incomplete, an d she later on developed abdmonial pain, in lower abdomen diffuse with nausea, flatulense, dysuria, no cough, no hematuria Present on Admission - Present on Admission Any Indicators Present on Admission: No History of DVT/PE: No History of Uncontrolled Diabetes: No Urinary Catheter: No Decubitus Ulcer Present: No Review of Systems - Constitutional Constitutional: Anorexia, Chills, Malaise - EENT Eyes: Dry Eye - Gastrointestinal Gastrointestinal: Abdominal Pain, Belching, Bloating, Dyspepsia, Excessive Flatus - Genitourinary Genitourinary: Dysuria, Urinary Incontinence - Neurological Neurological: Abnormal Gait Past Patient History - Infectious Disease Hx of Infectious Diseases: None - Past Medical History & Family History Past Medical History?: Yes - Past Social History Smoking Status: Never Smoked - CARDIAC Hx Hypercholesterolemia: Yes Hx Hypertension: Yes - ENDOCRINE/METABOLIC Hx Diabetes Mellitus Type 2: Yes - MUSCULOSKELETAL/RHEUMATOLOGICAL Hx Falls: No - PSYCHIATRIC Hx Substance Use: No - SURGICAL HISTORY Hx Surgeries: Yes Hx Vascular Surgery: Yes (left leg) - ANESTHESIA Hx Anesthesia: Yes Hx Anesthesia Reactions: No Meds Allergies/Adverse Reactions: Allergies Allergy/AdvReac Type Severity Reaction Status Date / Time ceftriaxone [From Rocephin] Allergy Verified 01/30/17 15:25 cilostazol Allergy Verified 01/30/17 12:17 ramipril AdvReac Severe Verified 01/30/17 12:17 Physical Exam - Constitutional Appears: Non-toxic, In Acute Distress, Chronically Ill - Head Exam Head Exam: ATRAUMATIC, NORMAL INSPECTION, NORMOCEPHALIC - Eye Exam Eye Exam: EOMI, Normal appearance, PERRL Pupil Exam: NORMAL ACCOMODATION - ENT Exam ENT Exam: Mucous Membranes Moist, Normal Exam - Neck Exam Neck exam: Positive for: Normal Inspection - Respiratory Exam Respiratory Exam: NORMAL BREATHING PATTERN - Cardiovascular Exam Cardiovascular Exam: REGULAR RHYTHM, +S1, +S2 - GI/Abdominal Exam GI & Abdominal Exam: Normal Bowel Sounds, Soft, Tenderness - Rectal Exam Rectal Exam: NORMAL INSPECTION - Extremities Exam Extremities exam: Positive for: normal capillary refill, pedal pulses present - Back Exam Back exam: NORMAL INSPECTION - Psychiatric Exam Psychiatric exam: Normal Affect, Normal Mood - Skin Skin Exam: Intact Results - Vital Signs Recent Vital Signs: Last Vital Signs Temp 100.5 F H 01/30/17 19:20 Pulse 66 01/30/17 16:56 Resp 20 01/30/17 16:56 BP 136/61 01/30/17 16:56 Pulse Ox 99 01/30/17 16:56 - Labs Result Diagrams: 01/30/17 12:37 01/30/17 12:37 Labs: Laboratory Results - last 24 hr 01/30/17 01/30/17 16:38 21:02 POC Glucose (mg/dL) 291 H 279 H Assessment & Plan (1) Hypertension Status: Chronic Priority: Low (2) Diabetes mellitus Status: Chronic Priority: Low (3) Abdominal pain Status: Acute Priority: High (4) UTI (lower urinary tract infection) Status: Acute
[2017-01-31] MEDS: Ciprofloxacin 200mg/100ml D5W 100 ML IVPB SCH ×2 (02:40→15:23)
[2017-01-31] MEDS: (Novolog) Insulin Aspart, Recombinant 100 u/ml 10 ml vial SC SCH ×5 (08:12→22:39)
[2017-01-31] MEDS: Enoxaparin 40 mg Syringe SC SCH (09:46)
[2017-01-31] MEDS: (Lantus) Insulin Glargine, Recombinant SC SCH (09:47)
[2017-01-31] MEDS: Pantoprazole 40 mg EC Tab PO SCH (09:47)
[2017-01-31 11:43] LABS: BASO % 0.4 % (0.0-2.0); EOS % 0.2 % (0.0-4.0); HEMATOCRIT 30.9 % (34.0-47.0); LYMPH # 0.1 K/uL (1.0-4.3); LYMPH % 1.6 % (20.0-40.0); MEAN CELL VOLUME 84.4 fL (81.0-99.0); MEAN CORPUSCULAR HEMOGLOBIN 28.1 pg (27.0-31.0); MEAN CORPUSCULAR HGB CONC 33.3 g/dL (33.0-37.0); MEAN PLATELET VOLUME 8.7 fL (7.2-11.7); MONO # 0.4 K/uL (0.0-0.8); MONO % 5.9 % (0.0-10.0); PLATELET COUNT 206 K/uL (130-400); RED CELL DISTRIBUTION WIDTH 13.3 % (11.5-14.5); WHITE BLOOD COUNT 7.1 K/uL (4.8-10.8)
[2017-01-31 11:46] LABS: POTASSIUM 4.1 mmol/L (3.6-5.2)
[2017-01-31 11:48] LABS: ALB/GLOB RATIO 0.9 (1.0-2.1); BILIRUBIN,TOTAL 0.5 mg/dL (0.2-1.3); TOTAL PROTEIN 6.4 g/dL (6.3-8.3)
[2017-01-31 11:49] LABS: CALCIUM 8.6 mg/dl (8.6-10.4)
[2017-01-31] MEDS: Aztreonam 1 GM in Sodium Chloride 0.9% 100 ML IVPB SCH (12:24)
[2017-01-31 12:33] LABS: BASOPHIL 1 % (0-2); NEUTROPHIL 88 % (50-75); TOTAL CELLS COUNTED 100
[2017-01-31] MEDS: Sodium Chloride 0.9% 1,000 ML IV SCH (14:00)
--- NOTE | 2017-01-31 15:05 | CP.PCM.PN ---
Objective - Vital Signs/Intake and Output Vital Signs (last 24 hours): Temp Pulse Resp BP Pulse Ox 102 F H 85 22 151/68 H 99 01/31/17 14:50 01/31/17 14:50 01/31/17 14:50 01/31/17 09:55 01/31/17 14:50 Intake and Output: 01/31/17 01/31/17 06:59 18:59 Intake Total 200 Balance 200 - Medications Medications: Current Medications Acetaminophen (Tylenol 325mg Tab) 650 mg PO Q6 PRN PRN Reason: Fever >100.4 F Last Admin: 01/31/17 10:05 Dose: 650 mg Amlodipine Besylate (Norvasc) 10 mg PO DAILY [facility] Last Admin: 01/31/17 09:48 Dose: 10 mg Enoxaparin Sodium (Lovenox) 40 mg SC DAILY [facility] Last Admin: 01/31/17 09:46 Dose: 40 mg Escitalopram Oxalate (Lexapro) 10 mg PO DAILY [facility] Last Admin: 01/31/17 09:48 Dose: 10 mg Ciprofloxacin (Cipro 200mg/100ml D5w) 100 mls @ 67 mls/hr IVPB Q12H [facility] Last Admin: 01/31/17 02:40 Dose: 67 mls/hr Aztreonam 1 gm/ Sodium (Chloride) 100 mls @ 100 mls/hr IVPB Q12H [facility] Last Admin: 01/31/17 12:24 Dose: 100 mls/hr Sodium Chloride (Sodium Chloride 0.9%) 1,000 mls @ 80 mls/hr IV .[id number] [facility] Insulin Aspart (Novolog) 0 unit SC ACHS [facility] PRN Reason: Protocol Last Admin: 01/31/17 12:30 Dose: 3 unit Insulin Glargine (Lantus) 20 unit SC DAILY [facility] Last Admin: 01/31/17 09:47 Dose: 20 units Lisinopril (Zestril) 10 mg PO DAILY [facility] Last Admin: 01/31/17 09:48 Dose: 10 mg Oxycodone/Acetaminophen (Percocet 5/325 Mg Tab) 1 tab PO Q4H PRN PRN Reason: Pain, moderate (4-7) Stop: 02/02/17 21:15 Last Admin: 01/30/17 21:48 Dose: 1 tab Pantoprazole Sodium (Protonix Ec Tab) 40 mg PO DAILY [facility] Last Admin: 01/31/17 09:47 Dose: 40 mg Sitagliptin Phosphate (Januvia) 50 mg PO DAILY [facility] Last Admin: 01/31/17 12:23 Dose: 50 mg Zolpidem Tartrate (Ambien) 5 mg PO HS PRN PRN Reason: Insomnia Last Admin: 01/30/17 21:50 Dose: 5 mg - Labs Labs: 01/31/17 11:34 01/31/17 11:34 Assessment and Plan (1) Hypertension Status: Chronic (2) Diabetes mellitus Status: Chronic (3) Abdominal pain Status: Acute (4) UTI (lower urinary tract infection) Status: Acute
--- NOTE | 2017-01-31 20:02 | CARD ---
APPROVED REPORT EKG Measurement Heart [id number] <Conclusion> Normal sinus rhythm Left bundle branch block Abnormal ECG
[2017-02-01] MEDS: Aztreonam 1 GM in Sodium Chloride 0.9% 100 ML IVPB SCH ×3 (00:25→17:10)
[2017-02-01] MEDS: Ciprofloxacin 200mg/100ml D5W 100 ML IVPB SCH ×2 (02:11→14:19)
[2017-02-01] MEDS: Sodium Chloride 0.9% 1,000 ML IV SCH ×2 (08:01→15:50)
[2017-02-01] MEDS: (Novolog) Insulin Aspart, Recombinant 100 u/ml 10 ml vial SC SCH ×4 (08:09→21:36)
[2017-02-01] MEDS: Enoxaparin 40 mg Syringe SC SCH (09:29)
[2017-02-01] MEDS: Pantoprazole 40 mg EC Tab PO SCH (09:29)
[2017-02-01] MEDS: (Lantus) Insulin Glargine, Recombinant SC SCH (11:22)
--- NOTE | 2017-02-01 16:24 | CP.PCM.CON ---
History of Present Illness - History of Present Illness History of Present Illness: Patient BIBA for evaluation of fever, abdominal pain since thursday. As per son , patient had chills starting thursday, and she has had intermittent abdominal pain for the past 3-4 months. Patient is s/p colonoscopy by Dr. Anayeli Billingsley , study was not completed due to difficulty passing the scope all the way through (as per patient's son). He denies cough, runny nose, vomiting, duiarrhea, SOB. referred for ID eval/ antibiotic management c/o LUQ pain / discomfort weakness and fever denies diarrhea CT done shoed diverticulosis w/o diverticulitis 12/06/16 - Medical History PMH: Diabetes, HTN, Hypercholesterolemia Family History: States: No Known Family Hx Review of Systems - Review of Systems Systems not reviewed;Unavailable: Acuity of Condition, Altered Mental Status - Constitutional Constitutional: As Per HPI - EENT Eyes: absent: As Per HPI, Blind Spots, Blurred Vision, Change in Vision, Decreased Night Vision, Diplopia, Discharge, Dry Eye, Exophthalmos, Floaters, Irritation, Itchy Eyes, Loss of Peripheral Vision, Pain, Photophobia, Requires Corrective Lenses, Sees Flashes, Spots in Vision, Tunnel Vision, Other Visual Disturbances, Loss of Vision, Other Ears: absent: As Per HPI, Decreased Hearing, Ear Discharge, Ear Pain, Tinnitus, Abnormal Hearing, Disequilibrium, Dizziness, Other Nose/Mouth/Throat: absent: As Per HPI, Epistaxis, Nasal Congestion, Nasal Discharge, Nasal Obstruction, Nasal Trauma, Nose Pain, Post Nasal Drip, Sinus Pain, Sinus Pressure, Bleeding Gums, Change in Voice, Dental Pain, Dry Mouth, Dysphagia, Halitosis, Hoarsness, Lip Swelling, Mouth Lesions, Mouth Pain, Odynophagia, Sore Throat, Throat Swelling, Tongue Swelling, Facial Pain, Neck Pain, Neck Mass, Other - Cardiovascular Cardiovascular: absent: As Per HPI, Acrocyanosis, Chest Pain, Chest Pain at Rest , Chest Pain with Activity, Claudication, Diaphoresis, Dyspnea, Dyspnea on Exertion, Edema, Irregular Heart Rhythm, Pain Radiating to Arm/Neck/Jaw, Leg Edema, Leg Ulcers, Lightheadedness, Orthopnea, Palpitations, Paroxysmal Nocturnal Dyspnea, Pedal Edema, Radiating Pain, Rapid Heart Rate, Slow Heart Rate, Syncope, Other - Respiratory Respiratory: absent: As Per HPI, Cough, Dyspnea, Hemoptysis, Dyspnea on Exertion , Wheezing, Snoring, Stridor, Pain on Inspiration, Chest Congestion, Excessive Mucous Production, Change in Mucous Color, Pain with Coughing, Other - Gastrointestinal Gastrointestinal: As Per HPI - Genitourinary Genitourinary: As Per HPI - Reproductive: Female Reproductive:Female: absent: As Per HPI, Amenorrhea, Amenorrhea/ Control, Currently Menstual, Cycle <21 Days, Cycle >35 Days, Cycle Variable, Menses 1-7 Days, Menses >/= 8 Days, Menses Variable, Cycle > 4 Weeks Between, No Menses for 6 Months, Heavy Menses, Light Menses, Normal Menses, Spotting Between Cycles , S/P Hysterectomy, Menopausal, Post Menopausal, Premenarche, Abnormal Vaginal Bleeding, Dysmenorrhea, Dyspareunia, Genital Lesions, Genital Pruritis, Pelvic Pain, Prolapse Symptoms, Sexual Dysfunction, Vaginal Discharge, Vaginal Dryness , Vaginal Odor, Vaginal Pruritis, Other - Menstruation Menstruation: absent: As Per HPI, Amenorrhea, Amenorrhea/ Control, Currently Menstual, Cycle <21 Days, Cycle >35 Days, Cycle Variable, Menses 1-7 Days, Menses >/= 8 Days, Menses Variable, Cycle > 4 Weeks Between, No Menses for 6 Months, Heavy Menses, Light Menses, Normal Menses, Spotting Between Cycles , S/P Hysterectomy, Menopausal, Post Menopausal, Premenarche, Abnormal Vaginal Bleeding, Dysmenorrhea, Other - Musculoskeletal Musculoskeletal: absent: As Per HPI, Abnormal Gait, Arthralgias, Atrophy, Back Pain, Deformity, Joint Swelling, Limited Range of Motion, Loss of Height, Muscle Cramps, Muscle Weakness, Myalgias, Neck Pain, Numbness, Radiating Pain into Limb, Stiffness, Tingling, Other - Integumentary Integumentary: absent: As Per HPI, Acne, Alopecia, Bleeding Lesions, Change in Hair, Change in Nails, Change in Pigmentation, Changing Lesions, Dry Skin, Erythema, Furuncle, Hirsutism, Lesions, New Lesions, Non-Healing Lesions, Photosensitivity, Pruritus, Rash, Skin Pain, Skin Ulcer, Sores, Striae, Swelling , Unusual Bruising, Wounds, Jaundice, Other - Neurological Neurological: absent: As Per HPI, Abnormal Gait, Abnormal Hearing, Abnormal Movements, Abnormal Speech, Behavioral Changes, Burning Sensations, Confusion, Convulsions, Disequilibrium, Dizziness, Numbness, Focal Weakness, Frequent Falls , Headaches, Lack of Coordination, Loss of Vision, Memory Loss, Paresthesias, Radicular Pain, Restless Legs, Sensory Deficit, Syncope, Tingling, Tremor, Vertigo, Weakness, Other Visual Disturbances, Other - Psychiatric Psychiatric: absent: As Per HPI, Abnormal Sleep Pattern, Anhedonia, Anxiety, Auditory Hallucinations, Behavioral Changes, Change in Appetite, Change in Libido, Confusion, Depression, Difficulty Concentrating, Hallucinations, Homicidal Ideation, Hopelessness, Irritability, Memory Loss, Mood Swings, Panic Attacks, Paranoia, Suicidal Ideation, Visual Hallucinations, Tactile Hallucinations, Other - Endocrine Endocrine: absent: As Per HPI, Change in Body Appearance, Change in Libido, Cold Intolorance, Deepening of Voice, Excessive Sweating, Fatigue, Flushing, Heat Intolorance, Increase in Ring/Shoe/Hat Size, Palpitations, Polydipsia, Polyphagia, Polyuria, Other - Hematologic/Lymphatic Hematologic: absent: As Per HPI, Easy Bleeding, Easy Bruising, Lymphadenopathy, Other Past Patient History - Infectious Disease Hx of Infectious Diseases: None - Past Medical History & Family History Past Medical History?: Yes - Past Social History Smoking Status: Never Smoked - CARDIAC Hx Hypercholesterolemia: Yes Hx Hypertension: Yes - ENDOCRINE/METABOLIC Hx Diabetes Mellitus Type 2: Yes - MUSCULOSKELETAL/RHEUMATOLOGICAL Hx Falls: No - PSYCHIATRIC Hx Substance Use: No - SURGICAL HISTORY Hx Surgeries: Yes Hx Vascular Surgery: Yes (left leg) - ANESTHESIA Hx Anesthesia: Yes Hx Anesthesia Reactions: No Meds Allergies/Adverse Reactions: Allergies Allergy/AdvReac Type Severity Reaction Status Date / Time ceftriaxone [From Rocephin] Allergy Verified 01/30/17 15:25 cilostazol Allergy Verified 01/30/17 12:17 ramipril AdvReac Severe Verified 01/30/17 12:17 - Medications Medications: Current Medications Acetaminophen (Tylenol 325mg Tab) 650 mg PO Q6 PRN PRN Reason: Fever >100.4 F Last Admin: 02/01/17 08:06 Dose: 650 mg Amlodipine Besylate (Norvasc) 10 mg PO DAILY [facility] Last Admin: 02/01/17 09:29 Dose: 10 mg Enoxaparin Sodium (Lovenox) 40 mg SC DAILY [facility] Last Admin: 02/01/17 09:29 Dose: 40 mg Escitalopram Oxalate (Lexapro) 10 mg PO DAILY [facility] Last Admin: 02/01/17 09:29 Dose: 10 mg Ciprofloxacin (Cipro 200mg/100ml D5w) 100 mls @ 67 mls/hr IVPB Q12H [facility] Last Admin: 02/01/17 14:19 Dose: 67 mls/hr Aztreonam 1 gm/ Sodium (Chloride) 100 mls @ 100 mls/hr IVPB Q12H [facility] Last Admin: 02/01/17 11:51 Dose: 100 mls/hr Sodium Chloride (Sodium Chloride 0.9%) 1,000 mls @ 80 mls/hr IV .[id number] [facility] Last Admin: 02/01/17 15:50 Dose: Not Given Insulin Aspart (Novolog) 0 unit SC ACHS [facility] PRN Reason: Protocol Last Admin: 02/01/17 12:54 Dose: 3 unit Insulin Glargine (Lantus) 20 unit SC DAILY [facility] Last Admin: 02/01/17 11:22 Dose: 20 units Lisinopril (Zestril) 10 mg PO DAILY [facility] Last Admin: 02/01/17 09:30 Dose: 10 mg Oxycodone/Acetaminophen (Percocet 5/325 Mg Tab) 1 tab PO Q4H PRN PRN Reason: Pain, moderate (4-7) Stop: 02/02/17 21:15 Last Admin: 01/30/17 21:48 Dose: 1 tab Pantoprazole Sodium (Protonix Ec Tab) 40 mg PO DAILY [facility] Last Admin: 02/01/17 09:29 Dose: 40 mg Sitagliptin Phosphate (Januvia) 50 mg PO DAILY [facility] Last Admin: 02/01/17 09:29 Dose: 50 mg Zolpidem Tartrate (Ambien) 5 mg PO HS PRN PRN Reason: Insomnia Last Admin: 01/30/17 21:50 Dose: 5 mg Physical Exam - Constitutional Appears: Confused, Cachectic, Chronically Ill - Head Exam Head Exam: ATRAUMATIC, NORMAL INSPECTION - Eye Exam Eye Exam: EOMI, PERRL. absent: Scleral icterus - ENT Exam ENT Exam: Mucous Membranes Dry, Normal External Ear Exam - Neck Exam Neck exam: Negative for: Lymphadenopathy, Thyromegaly - Respiratory Exam Respiratory Exam: Decreased Breath Sounds, Rhonchi - Cardiovascular Exam Cardiovascular Exam: REGULAR RHYTHM, +S1, +S2 - GI/Abdominal Exam GI & Abdominal Exam: Diminished Bowel Sounds, Soft, Tenderness. absent: Guarding, Rebound, Rigid - Rectal Exam Rectal Exam: Deferred - Exam Exam: NORMAL INSPECTION - Extremities Exam Extremities exam: Negative for: calf tenderness, pedal edema - Back Exam Back exam: absent: CVA tenderness (L), CVA tenderness (R) - Neurological Exam Neurological exam: Alert, CN II-XII Intact, Oriented x3, Reflexes Normal - Psychiatric Exam Psychiatric exam: Depressed - Skin Skin Exam: Dry Results - Vital Signs Recent Vital Signs: Last Vital Signs Temp 98.3 F 02/01/17 08:07 Pulse 65 02/01/17 08:07 Resp 20 02/01/17 08:07 BP 134/69 02/01/17 08:07 Pulse Ox 95 02/01/17 08:07 - Labs Result Diagrams: 01/31/17 11:34 01/31/17 11:34 Labs: Laboratory Results - last 24 hr 01/31/17 01/31/17 02/01/17 16:24 21:10 07:39 POC Glucose (mg/dL) 230 H 153 H 187 H 02/01/17 10:57 POC Glucose (mg/dL) 280 H Assessment & Plan (1) Diabetes mellitus Status: Chronic Priority: Low (2) Hypertension Status: Chronic Priority: Low (3) Abdominal pain Status: Acute Priority: High - Assessment and Plan (Free Text) Assessment: UTI r/o mass LUQ r/o diverticultis fever and sepsis
[2017-02-01] MEDS: Oxycodone/Acetaminophen 5/325 mg Tab PO PRN (16:47)
[2017-02-01] MEDS: metroNIDAZOLE IV 500 mg/100 ml 500 MG/100 ML BAG IVPB SCH (21:39)
--- NOTE | 2017-02-01 23:21 | CP.PCM.PN ---
Subjective - Date & Time of Evaluation Date of Evaluation: 02/01/17 - Subjective Subjective: no fever, less pain in abdomen, no sob, no cough, no fever, no chest pain Objective - Vital Signs/Intake and Output Vital Signs (last 24 hours): Temp Pulse Resp BP Pulse Ox 99.5 F 63 20 127/67 98 02/01/17 16:00 02/01/17 16:00 02/01/17 16:00 02/01/17 16:00 02/01/17 16:00 Intake and Output: 02/01/17 02/02/17 18:59 06:59 Intake Total 2059 1000 Balance 2059 1000 - Medications Medications: Current Medications Acetaminophen (Tylenol 325mg Tab) 650 mg PO Q6 PRN PRN Reason: Fever >100.4 F Last Admin: 02/01/17 08:06 Dose: 650 mg Amlodipine Besylate (Norvasc) 10 mg PO DAILY [facility] Last Admin: 02/01/17 09:29 Dose: 10 mg Enoxaparin Sodium (Lovenox) 40 mg SC DAILY [facility] Last Admin: 02/01/17 09:29 Dose: 40 mg Escitalopram Oxalate (Lexapro) 10 mg PO DAILY [facility] Last Admin: 02/01/17 09:29 Dose: 10 mg Sodium Chloride (Sodium Chloride 0.9%) 1,000 mls @ 80 mls/hr IV .[id number] [facility] Last Admin: 02/01/17 15:50 Dose: Not Given Aztreonam 1 gm/ Sodium (Chloride) 100 mls @ 100 mls/hr IVPB Q8H [facility] Last Admin: 02/01/17 17:10 Dose: 100 mls/hr Metronidazole (Flagyl) 500 mg in 100 mls @ 100 mls/hr IVPB Q8 [facility] Last Admin: 02/01/17 21:39 Dose: 100 mls/hr Insulin Aspart (Novolog) 0 unit SC ACHS [facility] PRN Reason: Protocol Last Admin: 02/01/17 21:36 Dose: Not Given Insulin Glargine (Lantus) 20 unit SC DAILY [facility] Last Admin: 02/01/17 11:22 Dose: 20 units Lisinopril (Zestril) 10 mg PO DAILY [facility] Last Admin: 02/01/17 09:30 Dose: 10 mg Oxycodone/Acetaminophen (Percocet 5/325 Mg Tab) 1 tab PO Q4H PRN PRN Reason: Pain, moderate (4-7) Stop: 02/02/17 21:15 Last Admin: 02/01/17 16:47 Dose: 1 tab Pantoprazole Sodium (Protonix Ec Tab) 40 mg PO DAILY [facility] Last Admin: 02/01/17 09:29 Dose: 40 mg Sitagliptin Phosphate (Januvia) 50 mg PO DAILY [facility] Last Admin: 02/01/17 09:29 Dose: 50 mg Zolpidem Tartrate (Ambien) 5 mg PO HS PRN PRN Reason: Insomnia Last Admin: 01/30/17 21:50 Dose: 5 mg - Labs Labs: 01/31/17 11:34 01/31/17 11:34 - Constitutional Appears: Non-toxic, No Acute Distress - Head Exam Head Exam: ATRAUMATIC, NORMAL INSPECTION, NORMOCEPHALIC - Eye Exam Eye Exam: EOMI, Normal appearance, PERRL Pupil Exam: NORMAL ACCOMODATION - ENT Exam ENT Exam: Mucous Membranes Moist, Normal Exam, Normal Oropharynx, TM's Normal Bilaterally - Neck Exam Neck Exam: Normal Inspection - Respiratory Exam Respiratory Exam: Clear to Ausculation Bilateral, NORMAL BREATHING PATTERN - Cardiovascular Exam Cardiovascular Exam: REGULAR RHYTHM, +S1, +S2 - GI/Abdominal Exam GI & Abdominal Exam: Soft, Normal Bowel Sounds - Rectal Exam Rectal Exam: NORMAL INSPECTION Assessment and Plan (1) Hypertension Status: Chronic (2) Diabetes mellitus Status: Chronic (3) Abdominal pain Status: Acute (4) UTI (lower urinary tract infection) Assessment & Plan: no fever, on azactam Status: Acute
[2017-02-02] MEDS: Aztreonam 1 GM in Sodium Chloride 0.9% 100 ML IVPB SCH ×3 (00:20→16:30)
[2017-02-02] MEDS: Oxycodone/Acetaminophen 5/325 mg Tab PO PRN ×2 (02:33→09:56)
[2017-02-02] MEDS: Sodium Chloride 0.9% 1,000 ML IV SCH ×4 (02:38→22:01)
[2017-02-02] MEDS: metroNIDAZOLE IV 500 mg/100 ml 500 MG/100 ML BAG IVPB SCH ×3 (05:28→22:02)
[2017-02-02] MEDS: (Novolog) Insulin Aspart, Recombinant 100 u/ml 10 ml vial SC SCH ×4 (08:12→22:03)
[2017-02-02] MEDS: Enoxaparin 40 mg Syringe SC SCH (09:54)
[2017-02-02] MEDS: Pantoprazole 40 mg EC Tab PO SCH (09:54)
--- NOTE | 2017-02-02 10:01 | US ---
HISTORY: r/o nephrolithiasis COMPARISON: None. TECHNIQUE: Sonographic evaluation of the abdomen. FINDINGS: LIVER: Measures 19.3 cm. Smooth contour however increased echogenicity of the liver parenchyma most likely representing fatty infiltration however other infiltrative hepatocellular disease process not excluded. . No mass. No intrahepatic bile duct dilatation. GALLBLADDER: Unremarkable. No gallstones. COMMON BILE DUCT: Measures 2.3 mm. No stones. No dilatation. PANCREAS: The pancreatic tail is not visualized due to body habitus and bowel gas. Visualized portions of the pancreas appear grossly unremarkable so far as can be seen. RIGHT KIDNEY: Measures approximately 10.9 x 4.5 x 5.1cm. Normal echogenicity. No calculus, mass, or hydronephrosis. LEFT KIDNEY: Measures approximately 10.5 x 5.5 x 5.6cm. Normal echogenicity. No calculus, mass, or hydronephrosis. SPLEEN: Normal in size and contour. No mass. AORTA: No aneurysmal dilatation. IVC: Unremarkable. OTHER FINDINGS: None. IMPRESSION: Findings most consistent with mild fatty hepatic infiltration however other infiltrative hepatocellular disease process cannot be completely excluded.
[2017-02-02] MEDS: (Lantus) Insulin Glargine, Recombinant SC SCH (12:27)
--- NOTE | 2017-02-02 15:24 | CP.PCM.CON ---
<Sal Benson - Last Filed: 02/02/17 15:42> History of Present Illness - History of Present Illness History of Present Illness: PGY4 GI Initial Consult Note Dorothy Charlton is a 81M w/ hx of ovarian ca s/p total hysterectomy, HTN, DM, PVD, Diverticulosis who presents to the ED with complains of LLQ pain and diarrhea. Pt states that the pain started around 3 months ago. Location LLQ. She states that pain is intermittent, with slight worsening post-prandial. Denies any alleviating factors. Pt was here in the ER at [facility], 3 weeks ago, for similar complaints. At the time, she states that she was having small amounts of blood mixed into the stool and after wiping. She had recently undergone a number of diagnostics tests including abd CT on 12/15/16 which revealed only left sided diverticulosis, and abd angiography which revealed no arterial disease in the celiac or mesenteries. At the time rectal bleeding was very mild and hgb was stable throughout the hospital course. She had no evidence of diverticulitis in the CT performed a few days before the ER visit. It was recommended she start miralax for her bowel regiment and get an oupt colonoscopy. Her son states that she recently had a colonscopy 1 week ago at [facility], but was incomplete due to either obstruction or poor prep. He states that the day after see started to complain of again the same abd symptoms with fever, chills and diaphoresis. They came to ER 2 days ago for further eval. She has been found to have an UTI and is currently being tx with IV abx. Both an Abd U/S and obstruction series was done this visit and all were WNL. 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, denies Etoh and illicit drugs, + smoking hx for 30+ years and could quantify amount Endo hx: Colonscopy 01/2017: incomplete, states that she may have had one in the 80's or 90's unsure of the results Past Patient History - Infectious Disease Hx of Infectious Diseases: None - Past Medical History & Family History Past Medical History?: Yes - Past Social History Smoking Status: Never Smoked - CARDIAC Hx Hypercholesterolemia: Yes Hx Hypertension: Yes - ENDOCRINE/METABOLIC Hx Diabetes Mellitus Type 2: Yes - MUSCULOSKELETAL/RHEUMATOLOGICAL Hx Falls: No - PSYCHIATRIC Hx Substance Use: No - SURGICAL HISTORY Hx Surgeries: Yes Hx Vascular Surgery: Yes (left leg) - ANESTHESIA Hx Anesthesia: Yes Hx Anesthesia Reactions: No Meds Allergies/Adverse Reactions: Allergies Allergy/AdvReac Type Severity Reaction Status Date / Time ceftriaxone [From Rocephin] Allergy Verified 01/30/17 15:25 cilostazol Allergy Verified 01/30/17 12:17 ramipril AdvReac Severe Verified 01/30/17 12:17 - Medications Medications: Current Medications Acetaminophen (Tylenol 325mg Tab) 650 mg PO Q6 PRN PRN Reason: Fever >100.4 F Last Admin: 02/01/17 08:06 Dose: 650 mg Amlodipine Besylate (Norvasc) 10 mg PO DAILY [facility] Last Admin: 02/02/17 09:54 Dose: 10 mg Enoxaparin Sodium (Lovenox) 30 mg SC DAILY [facility] Escitalopram Oxalate (Lexapro) 10 mg PO DAILY [facility] Last Admin: 02/02/17 09:54 Dose: 10 mg Sodium Chloride (Sodium Chloride 0.9%) 1,000 mls @ 80 mls/hr IV .[id number] [facility] Last Admin: 02/02/17 03:45 Dose: Not Given Aztreonam 1 gm/ Sodium (Chloride) 100 mls @ 100 mls/hr IVPB Q8H [facility] Last Admin: 02/02/17 08:10 Dose: 100 mls/hr Metronidazole (Flagyl) 500 mg in 100 mls @ 100 mls/hr IVPB Q8 [facility] Last Admin: 02/02/17 14:00 Dose: 100 mls/hr Insulin Aspart (Novolog) 0 unit SC ACHS [facility] PRN Reason: Protocol Last Admin: 02/02/17 12:25 Dose: 2 unit Insulin Glargine (Lantus) 20 unit SC DAILY [facility] Last Admin: 02/02/17 12:27 Dose: Not Given Lisinopril (Zestril) 10 mg PO DAILY [facility] Last Admin: 02/02/17 09:54 Dose: 10 mg Oxycodone/Acetaminophen (Percocet 5/325 Mg Tab) 1 tab PO Q4H PRN PRN Reason: Pain, moderate (4-7) Stop: 02/02/17 21:15 Last Admin: 02/02/17 09:56 Dose: 1 tab Pantoprazole Sodium (Protonix Ec Tab) 40 mg PO DAILY [facility] Last Admin: 02/02/17 09:54 Dose: 40 mg Sitagliptin Phosphate (Januvia) 50 mg PO DAILY [facility] Last Admin: 02/02/17 09:54 Dose: 50 mg Zolpidem Tartrate (Ambien) 5 mg PO HS PRN PRN Reason: Insomnia Last Admin: 01/30/17 21:50 Dose: 5 mg Physical Exam - Constitutional Appears: Well, No Acute Distress - Head Exam Head Exam: ATRAUMATIC, NORMOCEPHALIC - Eye Exam Eye Exam: Normal appearance - ENT Exam ENT Exam: Mucous Membranes Moist, Normal Exam - Respiratory Exam Respiratory Exam: Clear to Auscultation Bilateral, NORMAL BREATHING PATTERN. absent: Rales, Rhonchi, Wheezes - Cardiovascular Exam Cardiovascular Exam: REGULAR RHYTHM, +S1, +S2 - GI/Abdominal Exam GI & Abdominal Exam: Normal Bowel Sounds, Soft, Tenderness (LUQ). absent: Diminished Bowel Sounds, Distended, Firm, Guarding, Rigid - Extremities Exam Extremities exam: Positive for: normal inspection - Neurological Exam Neurological exam: Alert, Oriented x3 - Psychiatric Exam Psychiatric exam: Normal Affect, Normal Mood - Skin Skin Exam: Dry, Intact, Normal Color, Warm Results - Vital Signs Recent Vital Signs: Last Vital Signs Temp 98 F 02/02/17 07:46 Pulse 60 02/02/17 07:46 Resp 20 02/02/17 07:46 BP 135/66 02/02/17 07:46 Pulse Ox 95 02/02/17 07:46 - Labs Result Diagrams: 01/31/17 11:34 01/31/17 11:34 Labs: Laboratory Results - last 24 hr 02/01/17 02/01/17 02/02/17 16:36 21:11 07:16 POC Glucose (mg/dL) 211 H 139 H 125 H 02/02/17 10:58 POC Glucose (mg/dL) 242 H Assessment & Plan - Assessment and Plan (Free Text) Assessment: Dorothy Charlton is a 81F w/ hx of PVD and diverticulosis who presents with abd pain, fever, chills, and diarrhea and possible GI bleed. Etiology included diverticular bleed with/without some degree of diverticulitis, ischemic colitis , AVM, hemorrhoidal, functional Assessment: Abd pain, LLQ Lower GI bleed hx of constipation Plan: -continue tx for UTI with IV abx -Stool cultures and c.diff -will continue to monitor pt, if clinically stable will plan for inpt egd and colonscopy -continue to monitor hgb -clear liquid diet for now -will start prep tomorrow with golytly and dulcolax -continue PPI -encourage miralax daily as oupt -recent angio excluded ischemia as an etiology, all other recent imaging WNL D/W Dr. Salazar <James Salazar - Last Filed: 02/02/17 16:05> Meds - Medications Medications: Current Medications Acetaminophen (Tylenol 325mg Tab) 650 mg PO Q6 PRN PRN Reason: Fever >100.4 F Last Admin: 02/01/17 08:06 Dose: 650 mg Amlodipine Besylate (Norvasc) 10 mg PO DAILY [facility] Last Admin: 02/02/17 09:54 Dose: 10 mg Enoxaparin Sodium (Lovenox) 30 mg SC DAILY [facility] Escitalopram Oxalate (Lexapro) 10 mg PO DAILY [facility] Last Admin: 02/02/17 09:54 Dose: 10 mg Sodium Chloride (Sodium Chloride 0.9%) 1,000 mls @ 80 mls/hr IV .[id number] [facility] Last Admin: 02/02/17 03:45 Dose: Not Given Aztreonam 1 gm/ Sodium (Chloride) 100 mls @ 100 mls/hr IVPB Q8H [facility] Last Admin: 02/02/17 08:10 Dose: 100 mls/hr Metronidazole (Flagyl) 500 mg in 100 mls @ 100 mls/hr IVPB Q8 [facility] Last Admin: 02/02/17 14:00 Dose: 100 mls/hr Insulin Aspart (Novolog) 0 unit SC ACHS [facility] PRN Reason: Protocol Last Admin: 02/02/17 12:25 Dose: 2 unit Insulin Glargine (Lantus) 20 unit SC DAILY [facility] Last Admin: 02/02/17 12:27 Dose: Not Given Lisinopril (Zestril) 10 mg PO DAILY [facility] Last Admin: 02/02/17 09:54 Dose: 10 mg Oxycodone/Acetaminophen (Percocet 5/325 Mg Tab) 1 tab PO Q4H PRN PRN Reason: Pain, moderate (4-7) Stop: 02/02/17 21:15 Last Admin: 02/02/17 09:56 Dose: 1 tab Pantoprazole Sodium (Protonix Ec Tab) 40 mg PO DAILY [facility] Last Admin: 02/02/17 09:54 Dose: 40 mg Sitagliptin Phosphate (Januvia) 50 mg PO DAILY [facility] Last Admin: 02/02/17 09:54 Dose: 50 mg Zolpidem Tartrate (Ambien) 5 mg PO HS PRN PRN Reason: Insomnia Last Admin: 01/30/17 21:50 Dose: 5 mg Results - Vital Signs Recent Vital Signs: Last Vital Signs Temp 98 F 02/02/17 07:46 Pulse 60 02/02/17 07:46 Resp 20 02/02/17 07:46 BP 135/66 02/02/17 07:46 Pulse Ox 95 02/02/17 07:46 - Labs Result Diagrams: 01/31/17 11:34 01/31/17 11:34 Labs: Laboratory Results - last 24 hr 02/01/17 02/01/17 02/02/17 16:36 21:11 07:16 POC Glucose (mg/dL) 211 H 139 H 125 H 02/02/17 10:58 POC Glucose (mg/dL) 242 H Attending/Attestation - Attestation I have personally seen and examined this patient.: Yes I have fully participated in the care of the patient.: Yes I have reviewed all pertinent clinical information: Yes Notes (Text): 02/02/17 15:58 I have seen and examined patient with GI fellow. Agree with above documentation with the following additions. In brief, this is a 81 year old female with history of ovarian cancer s/p hysterectomy, HTN, DM, PVD who presents to hospital with complaint of progressive LLQ abdominal pain for the past 3 months. She had a recent hospital admission for similar complaints last month and was associated with occasional rectal bleeding. She underwent outpatient colonoscopy with [facility], though the procedure was incomplete due to colonic compression and poor bowel preparation as per patient' s son. Recently she has also developed fever along with progressive pain. She denies associated nausea, vomiting, rectal bleeding. She does report a 6 pound weight loss over this course of time. She has not had a bowel movement in past 2 days, currently she is being treated for UTI. DM / HTN PVD Abdominal pain UTI Anemia Unexplained weight loss Abdominal US reviewed by me showing fatty liver, otherwise no significant abnormalities - Continue with antibiotic therapy - H/H stable, continue to monitor, no overt bleeding noted - Clear liquid diet as tolerated - Continue with PPI therapy - Given progressive abdominal pain with incomplete endoscopic evaluation as outpatient, anemia, and unexplained weight loss, would favor inpatient EGD/ colonoscopy for further workup to rule out underlying malignancy pending patient clinical progress.
--- NOTE | 2017-02-02 19:39 | CP.PCM.PN ---
Subjective - Date & Time of Evaluation Date of Evaluation: 02/02/17 - Subjective Subjective: NO FEVER, C/O EPIGASTIC DISCOMFORT WITH FOOD, NO SOB Objective - Vital Signs/Intake and Output Vital Signs (last 24 hours): Temp Pulse Resp BP Pulse Ox 98.8 F 55 L 22 126/65 94 L 02/02/17 15:00 02/02/17 15:00 02/02/17 15:00 02/02/17 15:00 02/02/17 15:00 Intake and Output: 02/02/17 02/03/17 18:59 06:59 Intake Total 1020 Balance 1020 - Medications Medications: Current Medications Acetaminophen (Tylenol 325mg Tab) 650 mg PO Q6 PRN PRN Reason: Fever >100.4 F Last Admin: 02/01/17 08:06 Dose: 650 mg Amlodipine Besylate (Norvasc) 10 mg PO DAILY [facility] Last Admin: 02/02/17 09:54 Dose: 10 mg Enoxaparin Sodium (Lovenox) 30 mg SC DAILY [facility] Escitalopram Oxalate (Lexapro) 10 mg PO DAILY [facility] Last Admin: 02/02/17 09:54 Dose: 10 mg Sodium Chloride (Sodium Chloride 0.9%) 1,000 mls @ 80 mls/hr IV .[id number] [facility] Last Admin: 02/02/17 16:35 Dose: Not Given Aztreonam 1 gm/ Sodium (Chloride) 100 mls @ 100 mls/hr IVPB Q8H [facility] Last Admin: 02/02/17 16:30 Dose: 100 mls/hr Metronidazole (Flagyl) 500 mg in 100 mls @ 100 mls/hr IVPB Q8 [facility] Last Admin: 02/02/17 14:00 Dose: 100 mls/hr Insulin Aspart (Novolog) 0 unit SC ACHS [facility] PRN Reason: Protocol Last Admin: 02/02/17 17:45 Dose: 2 unit Insulin Glargine (Lantus) 20 unit SC DAILY [facility] Last Admin: 02/02/17 12:27 Dose: Not Given Lisinopril (Zestril) 10 mg PO DAILY [facility] Last Admin: 02/02/17 09:54 Dose: 10 mg Oxycodone/Acetaminophen (Percocet 5/325 Mg Tab) 1 tab PO Q4H PRN PRN Reason: Pain, moderate (4-7) Stop: 02/02/17 21:15 Last Admin: 02/02/17 09:56 Dose: 1 tab Pantoprazole Sodium (Protonix Ec Tab) 40 mg PO DAILY [facility] Last Admin: 02/02/17 09:54 Dose: 40 mg Sitagliptin Phosphate (Januvia) 50 mg PO DAILY [facility] Last Admin: 02/02/17 09:54 Dose: 50 mg Zolpidem Tartrate (Ambien) 5 mg PO HS PRN PRN Reason: Insomnia Last Admin: 01/30/17 21:50 Dose: 5 mg - Labs Labs: 01/31/17 11:34 01/31/17 11:34 - Constitutional Appears: Non-toxic, No Acute Distress - Head Exam Head Exam: ATRAUMATIC, NORMAL INSPECTION, NORMOCEPHALIC - Eye Exam Eye Exam: EOMI, Normal appearance, PERRL Pupil Exam: NORMAL ACCOMODATION - ENT Exam ENT Exam: Mucous Membranes Moist, Normal Exam, Normal Oropharynx, TM's Normal Bilaterally - Neck Exam Neck Exam: Full ROM, Normal Inspection - Respiratory Exam Respiratory Exam: Clear to Ausculation Bilateral, NORMAL BREATHING PATTERN - Cardiovascular Exam Cardiovascular Exam: REGULAR RHYTHM, +S1, +S2 - GI/Abdominal Exam GI & Abdominal Exam: Soft, Normal Bowel Sounds - Rectal Exam Rectal Exam: NORMAL INSPECTION - Extremities Exam Extremities Exam: Normal Capillary Refill, Normal Inspection - Neurological Exam Neurological Exam: Alert, Awake, CN II-XII Intact, Normal Gait, Oriented x3 Neuro motor strength exam: Left Upper Extremity: 5, Right Upper Extremity: 5, Left Lower Extremity: 5, Right Lower Extremity: 5 - Psychiatric Exam Psychiatric exam: Normal Affect, Normal Mood - Skin Skin Exam: Intact Assessment and Plan (1) Hypertension Status: Chronic (2) Diabetes mellitus Status: Chronic (3) Abdominal pain Assessment & Plan: GASTRITIS Status: Acute (4) UTI (lower urinary tract infection) Assessment & Plan: ON AZACTAM Status: Acute
[2017-02-03] MEDS: Aztreonam 1 GM in Sodium Chloride 0.9% 100 ML IVPB SCH ×3 (01:00→17:22)
[2017-02-03] MEDS: metroNIDAZOLE IV 500 mg/100 ml 500 MG/100 ML BAG IVPB SCH ×3 (06:01→21:23)
--- NOTE | 2017-02-03 07:25 | CP.PCM.PN ---
<Sal Benson - Last Filed: 02/03/17 07:25> Subjective - Date & Time of Evaluation Date of Evaluation: 02/03/17 Time of Evaluation: 06:50 - Subjective Subjective: PGY4 GI Follow-up Pt seen and examined bedside No complaints Denies any sig abd pain Tolerating liquid diet No BM since admission ROS: 10 point ROSc conducted, neg other than stated above Objective - Vital Signs/Intake and Output Vital Signs (last 24 hours): Temp Pulse Resp BP Pulse Ox 98.7 F 66 20 149/74 95 02/03/17 00:00 02/03/17 00:00 02/03/17 00:00 02/03/17 00:00 02/03/17 00:00 Intake and Output: 02/03/17 02/03/17 06:59 18:59 Intake Total 1030 Balance 1030 - Medications Medications: Current Medications Acetaminophen (Tylenol 325mg Tab) 650 mg PO Q6 PRN PRN Reason: Fever >100.4 F Last Admin: 02/01/17 08:06 Dose: 650 mg Amlodipine Besylate (Norvasc) 10 mg PO DAILY [facility] Last Admin: 02/02/17 09:54 Dose: 10 mg Bisacodyl (Dulcolax) 10 mg PO ONCE ONE Stop: 02/03/17 13:01 Enoxaparin Sodium (Lovenox) 30 mg SC DAILY [facility] Escitalopram Oxalate (Lexapro) 10 mg PO DAILY [facility] Last Admin: 02/02/17 09:54 Dose: 10 mg Sodium Chloride (Sodium Chloride 0.9%) 1,000 mls @ 80 mls/hr IV .[id number] [facility] Last Admin: 02/02/17 22:01 Dose: 80 mls/hr Aztreonam 1 gm/ Sodium (Chloride) 100 mls @ 100 mls/hr IVPB Q8H [facility] Last Admin: 02/03/17 01:00 Dose: 100 mls/hr Metronidazole (Flagyl) 500 mg in 100 mls @ 100 mls/hr IVPB Q8 [facility] Last Admin: 02/03/17 06:01 Dose: 100 mls/hr Insulin Aspart (Novolog) 0 unit SC ACHS [facility] PRN Reason: Protocol Last Admin: 02/02/17 22:03 Dose: Not Given Insulin Glargine (Lantus) 20 unit SC DAILY [facility] Last Admin: 02/02/17 12:27 Dose: Not Given Lisinopril (Zestril) 10 mg PO DAILY [facility] Last Admin: 02/02/17 09:54 Dose: 10 mg Pantoprazole Sodium (Protonix Ec Tab) 40 mg PO DAILY [facility] Last Admin: 02/02/17 09:54 Dose: 40 mg Polyethylene Glycol/Electrolytes (Golytely) 4,000 ml PO ONCE ONE Stop: 02/03/17 14:01 Sitagliptin Phosphate (Januvia) 50 mg PO DAILY [facility] Last Admin: 02/02/17 09:54 Dose: 50 mg Zolpidem Tartrate (Ambien) 5 mg PO HS PRN PRN Reason: Insomnia Last Admin: 01/30/17 21:50 Dose: 5 mg - Labs Labs: 01/31/17 11:34 01/31/17 11:34 - Constitutional Appears: Well, No Acute Distress - Head Exam Head Exam: ATRAUMATIC, NORMOCEPHALIC - Eye Exam Eye Exam: Normal appearance - ENT Exam ENT Exam: Mucous Membranes Moist, Normal Exam - Respiratory Exam Respiratory Exam: Clear to Ausculation Bilateral, NORMAL BREATHING PATTERN. absent: Rales, Rhonchi, Wheezes - GI/Abdominal Exam GI & Abdominal Exam: Soft, Normal Bowel Sounds. absent: Guarding, Rigid, Tenderness, Organomegaly - Extremities Exam Extremities Exam: absent: Joint Swelling, Pedal Edema - Neurological Exam Neurological Exam: Alert, Awake, Oriented x3 - Psychiatric Exam Psychiatric exam: Anxious, Normal Mood - Skin Skin Exam: Dry, Intact, Normal Color, Warm Assessment and Plan - Assessment and Plan (Free Text) Assessment: Dorothy Charlton is a 81F w/ hx of PVD and diverticulosis who presents with abd pain, fever, chills, and diarrhea and possible GI bleed. Etiology included diverticular bleed with/without some degree of diverticulitis, ischemic colitis , AVM, hemorrhoidal, functional Assessment: Abd pain, LLQ Lower GI bleed? anemia UTI weight loss, unexplained hx of constipation Plan: -continue tx for UTI with IV abx -plan for colonoscopy and EGD tomorrow -NPO after midnight -Clears today -Start Golytly in the afteroon -Dulcolax 10mg prior to prep -continue PPI -encourage miralax daily as oupt -recent angio excluded ischemia as an etiology, all other recent imaging WNL Will D/W Dr. Salazar <James Salazar Y - Last Filed: 02/03/17 09:19> Objective - Vital Signs/Intake and Output Vital Signs (last 24 hours): Temp Pulse Resp BP Pulse Ox 99.4 F 67 20 144/65 98 02/03/17 08:44 02/03/17 08:44 02/03/17 08:44 02/03/17 08:44 02/03/17 08:44 Intake and Output: 02/03/17 02/03/17 06:59 18:59 Intake Total 1670 Balance 1670 - Medications Medications: Current Medications Acetaminophen (Tylenol 325mg Tab) 650 mg PO Q6 PRN PRN Reason: Fever >100.4 F Last Admin: 02/01/17 08:06 Dose: 650 mg Amlodipine Besylate (Norvasc) 10 mg PO DAILY [facility] Last Admin: 02/02/17 09:54 Dose: 10 mg Bisacodyl (Dulcolax) 10 mg PO ONCE ONE Stop: 02/03/17 13:01 Enoxaparin Sodium (Lovenox) 30 mg SC DAILY [facility] Escitalopram Oxalate (Lexapro) 10 mg PO DAILY [facility] Last Admin: 02/02/17 09:54 Dose: 10 mg Sodium Chloride (Sodium Chloride 0.9%) 1,000 mls @ 80 mls/hr IV .[id number] [facility] Last Admin: 02/02/17 22:01 Dose: 80 mls/hr Aztreonam 1 gm/ Sodium (Chloride) 100 mls @ 100 mls/hr IVPB Q8H [facility] Last Admin: 02/03/17 08:27 Dose: 100 mls/hr Metronidazole (Flagyl) 500 mg in 100 mls @ 100 mls/hr IVPB Q8 [facility] Last Admin: 02/03/17 06:01 Dose: 100 mls/hr Insulin Aspart (Novolog) 0 unit SC ACHS [facility] PRN Reason: Protocol Last Admin: 02/03/17 08:27 Dose: 1 unit Insulin Glargine (Lantus) 20 unit SC DAILY [facility] Last Admin: 02/02/17 12:27 Dose: Not Given Lisinopril (Zestril) 10 mg PO DAILY [facility] Last Admin: 02/02/17 09:54 Dose: 10 mg Pantoprazole Sodium (Protonix Ec Tab) 40 mg PO DAILY [facility] Last Admin: 02/02/17 09:54 Dose: 40 mg Polyethylene Glycol/Electrolytes (Golytely) 4,000 ml PO ONCE ONE Stop: 02/03/17 14:01 Sitagliptin Phosphate (Januvia) 50 mg PO DAILY [facility] Last Admin: 02/02/17 09:54 Dose: 50 mg Zolpidem Tartrate (Ambien) 5 mg PO HS PRN PRN Reason: Insomnia Last Admin: 01/30/17 21:50 Dose: 5 mg - Labs Labs: 01/31/17 11:34 01/31/17 11:34 Attending/Attestation - Attestation I have personally seen and examined this patient.: Yes I have fully participated in the care of the patient.: Yes I have reviewed all pertinent clinical information, including history, physical exam and plan: Yes Notes (Text): 02/03/17 09:16 I have seen and examined patient with GI fellow. No acute events overnight, she is seen resting in bed comfortably. She complains of mild epigastric abdominal pain, though improved compared to prior. She denies nausea, vomiting , fever/chills. Tolerating PO liquids without difficulty. Review of vitals from today are normal. Patient still has not had any bowel movements. Chronic constipation UTI Unexplained weight loss Abdominal pain Anemia - Continue with antibiotic therapy as per medical team - Liquid diet as tolerated - H/H stable, continue to monitor - Continue with PPI therapy - Plan for EGD/colonoscopy tomorrow for further evaluation of ongoing abdominal pain, unexplained weight loss, and anemia. Golytely bowel preparation today, NPO after midnight.
[2017-02-03] MEDS: (Novolog) Insulin Aspart, Recombinant 100 u/ml 10 ml vial SC SCH ×4 (08:27→21:26)
[2017-02-03] MEDS: Enoxaparin 30 mg Syringe SC SCH (09:35)
[2017-02-03] MEDS: (Lantus) Insulin Glargine, Recombinant SC SCH (09:35)
[2017-02-03] MEDS: Pantoprazole 40 mg EC Tab PO SCH (09:35)
[2017-02-03 11:38] LABS: BASO % 0.3 % (0.0-2.0); EOS % 0.4 % (0.0-4.0); HEMATOCRIT 31.3 % (34.0-47.0); LYMPH # 0.5 K/uL (1.0-4.3); LYMPH % 6.3 % (20.0-40.0); MEAN CELL VOLUME 83.1 fL (81.0-99.0); MEAN CORPUSCULAR HEMOGLOBIN 27.7 pg (27.0-31.0); MEAN CORPUSCULAR HGB CONC 33.3 g/dL (33.0-37.0); MEAN PLATELET VOLUME 8.4 fL (7.2-11.7); MONO # 0.9 K/uL (0.0-0.8); MONO % 11.8 % (0.0-10.0); NRBC % 0.1 % (0.0-2.0); PLATELET COUNT 262 K/uL (130-400); RED CELL DISTRIBUTION WIDTH 13.6 % (11.5-14.5); WHITE BLOOD COUNT 7.6 K/uL (4.8-10.8)
[2017-02-03 11:49] LABS: CHLORIDE 102 mmol/L (98-107)
[2017-02-03 11:50] LABS: POTASSIUM 3.8 mmol/L (3.6-5.2); SODIUM 135 mmol/L (132-148)
[2017-02-03 11:52] LABS: ALB/GLOB RATIO 0.8 (1.0-2.1); ALKALINE PHOSPHATASE 92 U/L (38-126); AST/SGOT 41 U/L (14-36); BILIRUBIN,TOTAL 0.4 mg/dL (0.2-1.3); BLOOD UREA NITROGEN 15 mg/dL (7-17); CARBON DIOXIDE 21 mmol/L (22-30); GFR AFRICAN-AMERICAN > 60; GLUCOSE,RANDOM 203 mg/dL (65-105); TOTAL PROTEIN 5.9 g/dL (6.3-8.3)
[2017-02-03 11:53] LABS: ALT/SGPT 39 U/L (9-52); CALCIUM 8.4 mg/dl (8.6-10.4)
[2017-02-03 12:35] LABS: NEUTROPHIL 70 % (50-75); TOTAL CELLS COUNTED 100
[2017-02-03] MEDS ORDERED: Bisacodyl 5mg EC Tab PO ONE ×2 (13:00→14:31)
[2017-02-03] MEDS ORDERED: Peg-Electrolyte Oral Soln 4L (Golytely) PO ONE (14:00)
[2017-02-03] MEDS: Sodium Chloride 0.9% 1,000 ML IV SCH (16:44)
--- NOTE | 2017-02-03 17:17 | CP.PCM.CON ---
History of Present Illness - History of Present Illness History of Present Illness: REASONS FOR CONSULT : CKD STAGE 3 WITH BASELINE eGFR AROUND 40 AN OUT PT CAME IN WITH eGFR AT 33 ML/M .. WITH IV HYDRATION eGFR IMPROVED TO WNL UTI ALL PREVIOUS EMR REVIEWED .. CURRENT CHART REVIEWED .. PT EXAMINED PT IS WELL TO ME FROM HER PREVIOUS ADMISSION WELL FROM OFFICE VISITS Patient SANTA for evaluation of fever, abdominal pain to the ER ... As per son, patient had chills starting thursday, and she has had intermittent abdominal pain for the past 3-4 months. Patient is s/p colonoscopy by Dr. Anayeli Billingsley , study was not completed due to difficulty passing the scope all the way through (as per patient's son). He denies cough, runny nose, vomiting, duiarrhea, SOB. Time Seen by Provider: 01/30/17 12:23 Chief Complaint (Nursing): Weakness/Neurological Deficit History Per: Patient, Family Past Patient History - Infectious Disease Hx of Infectious Diseases: None - Past Medical History & Family History Past Medical History?: Yes - Past Social History Smoking Status: Never Smoked - CARDIAC Hx Hypercholesterolemia: Yes Hx Hypertension: Yes - ENDOCRINE/METABOLIC Hx Diabetes Mellitus Type 2: Yes - MUSCULOSKELETAL/RHEUMATOLOGICAL Hx Falls: No - PSYCHIATRIC Hx Substance Use: No - SURGICAL HISTORY Hx Surgeries: Yes Hx Vascular Surgery: Yes (left leg) - ANESTHESIA Hx Anesthesia: Yes Hx Anesthesia Reactions: No Meds Allergies/Adverse Reactions: Allergies Allergy/AdvReac Type Severity Reaction Status Date / Time ceftriaxone [From Rocephin] Allergy Verified 01/30/17 15:25 cilostazol Allergy Verified 01/30/17 12:17 ramipril AdvReac Severe Verified 01/30/17 12:17 - Medications Medications: Current Medications Acetaminophen (Tylenol 325mg Tab) 650 mg PO Q6 PRN PRN Reason: Fever >100.4 F Last Admin: 02/01/17 08:06 Dose: 650 mg Amlodipine Besylate (Norvasc) 10 mg PO DAILY [facility] Last Admin: 02/03/17 09:35 Dose: 10 mg Enoxaparin Sodium (Lovenox) 30 mg SC DAILY [facility] Last Admin: 02/03/17 09:35 Dose: 30 mg Escitalopram Oxalate (Lexapro) 10 mg PO DAILY [facility] Last Admin: 02/03/17 09:35 Dose: 10 mg Aztreonam 1 gm/ Sodium (Chloride) 100 mls @ 100 mls/hr IVPB Q8H [facility] Last Admin: 02/03/17 08:27 Dose: 100 mls/hr Metronidazole (Flagyl) 500 mg in 100 mls @ 100 mls/hr IVPB Q8 [facility] Last Admin: 02/03/17 14:42 Dose: 100 mls/hr Insulin Aspart (Novolog) 0 unit SC ACHS [facility] PRN Reason: Protocol Last Admin: 02/03/17 12:24 Dose: 2 unit Insulin Glargine (Lantus) 20 unit SC DAILY [facility] Last Admin: 02/03/17 09:35 Dose: 20 units Lisinopril (Zestril) 10 mg PO DAILY [facility] Last Admin: 02/03/17 09:35 Dose: 10 mg Pantoprazole Sodium (Protonix Ec Tab) 40 mg PO DAILY [facility] Last Admin: 02/03/17 09:35 Dose: 40 mg Sitagliptin Phosphate (Januvia) 50 mg PO DAILY [facility] Last Admin: 02/03/17 09:35 Dose: 50 mg Zolpidem Tartrate (Ambien) 5 mg PO HS PRN PRN Reason: Insomnia Last Admin: 01/30/17 21:50 Dose: 5 mg Results - Vital Signs Recent Vital Signs: Last Vital Signs Temp 98.5 F 02/03/17 15:10 Pulse 61 02/03/17 15:10 Resp 20 02/03/17 15:10 BP 141/68 02/03/17 15:10 Pulse Ox 95 02/03/17 15:10 - Labs Result Diagrams: 02/03/17 11:20 02/03/17 11:23 Labs: Laboratory Results - last 24 hr 02/02/17 02/03/17 02/03/17 21:16 07:33 11:20 WBC 7.6 RBC 3.77 L Hgb 10.4 L Hct 31.3 L MCV 83.1 MCH 27.7 MCHC 33.3 RDW 13.6 Plt Count 262 MPV 8.4 Neut % (Auto) 81.2 H Lymph % (Auto) 6.3 L [place] % (Auto) 11.8 H Eos % (Auto) 0.4 Baso % (Auto) 0.3 Neut # 6.2 Lymph # 0.5 L [place] # 0.9 H Eos # 0.0 Baso # 0.0 Neutrophils % (Manual) 70 Band Neutrophils % 15 H* Lymphocytes % (Manual) 5 L Monocytes % (Manual) 10 Platelet Estimate Normal Basophilic Stippling Slight Ovalocytes Slight Sodium Potassium Chloride Carbon Dioxide Anion Gap BUN Creatinine Est GFR ( Amer) Est GFR (Non-Af Amer) POC Glucose (mg/dL) 174 H 168 H Random Glucose Calcium Total Bilirubin AST ALT Alkaline Phosphatase Total Protein Albumin Globulin Albumin/Globulin Ratio 02/03/17 02/03/17 02/03/17 11:23 11:39 16:55 WBC RBC Hgb Hct MCV MCH MCHC RDW Plt Count MPV Neut % (Auto) Lymph % (Auto) [place] % (Auto) Eos % (Auto) Baso % (Auto) Neut # Lymph # [place] # Eos # Baso # Neutrophils % (Manual) Band Neutrophils % Lymphocytes % (Manual) Monocytes % (Manual) Platelet Estimate Basophilic Stippling Ovalocytes Sodium 135 Potassium 3.8 Chloride 102 Carbon Dioxide 21 L Anion Gap 16 BUN 15 Creatinine 1.0 Est GFR ( Amer) > 60 Est GFR (Non-Af Amer) 53 POC Glucose (mg/dL) 238 H 137 H Random Glucose 203 H Calcium 8.4 L Total Bilirubin 0.4 AST 41 H D ALT 39 Alkaline Phosphatase 92 Total Protein 5.9 L Albumin 2.7 L Globulin 3.3 Albumin/Globulin Ratio 0.8 L Assessment & Plan - Assessment and Plan (Free Text) Assessment: CKD BY HISTORY .. HER eGFR 40 AN OUT PT .. CAME IN WITH eGFR AT 33 .. IMPROVED WITH IVF TO WNL UTI ON IVAB MULTIPLE CO MORBIDITIES P : C/O CURRENT CARE C/O CURRENT MANAGEMENT RENAL FUNCTION STABLE REASSURED .. D/W HER SON - Date & Time Date: 02/03/17 Time: 15:00
[2017-02-04] MEDS: Aztreonam 1 GM in Sodium Chloride 0.9% 100 ML IVPB SCH ×3 (00:31→15:55)
[2017-02-04] MEDS: metroNIDAZOLE IV 500 mg/100 ml 500 MG/100 ML BAG IVPB SCH ×3 (06:04→22:18)
[2017-02-04 06:39] LABS: BASO % 0.5 % (0.0-2.0); EOS # 0.1 K/uL (0.0-0.7); EOS % 1.6 % (0.0-4.0); HEMATOCRIT 29.3 % (34.0-47.0); LYMPH # 0.7 K/uL (1.0-4.3); LYMPH % 10.8 % (20.0-40.0); MEAN CELL VOLUME 83.1 fL (81.0-99.0); MEAN CORPUSCULAR HEMOGLOBIN 27.6 pg (27.0-31.0); MEAN CORPUSCULAR HGB CONC 33.2 g/dL (33.0-37.0); MEAN PLATELET VOLUME 8.2 fL (7.2-11.7); MONO # 0.8 K/uL (0.0-0.8); MONO % 13.4 % (0.0-10.0); RED CELL DISTRIBUTION WIDTH 13.4 % (11.5-14.5); WHITE BLOOD COUNT 6.1 K/uL (4.8-10.8)
[2017-02-04] MEDS ORDERED: Magnesium Citrate Oral SOL (300 ml) PO STA (08:12)
[2017-02-04] MEDS: (Novolog) Insulin Aspart, Recombinant 100 u/ml 10 ml vial SC SCH ×3 (08:34→17:10)
[2017-02-04] MEDS ORDERED: Propofol 10 mg/ml Inj (20 ML) ONE ×3 (12:20→13:08)
[2017-02-04] MEDS ORDERED: Lactated Ringer's 1,000 ML IV ONE ×3 (12:20)
[2017-02-04] MEDS ORDERED: Etomidate 20 mg/10ml Inj IV ONE (12:35)
[2017-02-04] MEDS: (Lantus) Insulin Glargine, Recombinant SC SCH (12:41)
[2017-02-04] MEDS: Enoxaparin 30 mg Syringe SC SCH (12:41)
[2017-02-04] MEDS: Pantoprazole 40 mg EC Tab PO SCH (12:42)
[2017-02-04 13:53] VITALS: RESP 20
--- NOTE | 2017-02-04 15:45 | CP.PCM.PN ---
Subjective - Date & Time of Evaluation Date of Evaluation: 02/04/17 Time of Evaluation: 15:41 - Subjective Subjective: Patient seen and examined, resting in bed comfortably. She complains of ongoing mild abdominal discomfort, though improved compared to previous. s/p EGD and colonoscopy today showing multiple colon polyps, rectosigmoid ulcer, and gastritis. Objective - Vital Signs/Intake and Output Vital Signs (last 24 hours): Temp Pulse Resp BP Pulse Ox 98.6 F 54 L 20 147/58 L 96 02/04/17 13:20 02/04/17 13:50 02/04/17 13:50 02/04/17 13:50 02/04/17 15:12 Intake and Output: 02/04/17 02/04/17 06:59 18:59 Intake Total 3120 Balance 3120 - Medications Medications: Current Medications Acetaminophen (Tylenol 325mg Tab) 650 mg PO Q6 PRN PRN Reason: Fever >100.4 F Last Admin: 02/01/17 08:06 Dose: 650 mg Amlodipine Besylate (Norvasc) 10 mg PO DAILY [facility] Last Admin: 02/04/17 08:39 Dose: 10 mg Enoxaparin Sodium (Lovenox) 30 mg SC DAILY [facility] Last Admin: 02/04/17 12:41 Dose: Not Given Escitalopram Oxalate (Lexapro) 10 mg PO DAILY [facility] Last Admin: 02/04/17 12:41 Dose: Not Given Aztreonam 1 gm/ Sodium (Chloride) 100 mls @ 100 mls/hr IVPB Q8H [facility] Last Admin: 02/04/17 08:32 Dose: 100 mls/hr Metronidazole (Flagyl) 500 mg in 100 mls @ 100 mls/hr IVPB Q8 [facility] Last Admin: 02/04/17 14:47 Dose: 100 mls/hr Insulin Aspart (Novolog) 0 unit SC ACHS [facility] PRN Reason: Protocol Last Admin: 02/04/17 12:42 Dose: Not Given Insulin Glargine (Lantus) 20 unit SC DAILY [facility] Last Admin: 02/04/17 12:41 Dose: Not Given Lisinopril (Zestril) 10 mg PO DAILY [facility] Last Admin: 02/04/17 08:39 Dose: 10 mg Pantoprazole Sodium (Protonix Ec Tab) 40 mg PO DAILY [facility] Last Admin: 02/04/17 12:42 Dose: Not Given Sitagliptin Phosphate (Januvia) 50 mg PO DAILY [facility] Last Admin: 02/04/17 12:41 Dose: Not Given Zolpidem Tartrate (Ambien) 5 mg PO HS PRN PRN Reason: Insomnia Last Admin: 01/30/17 21:50 Dose: 5 mg - Labs Labs: 02/04/17 06:29 02/03/17 11:23 Assessment and Plan - Assessment and Plan (Free Text) Assessment: Chronic constipation UTI Abdominal pain Anemia s/p EGD/colonoscopy today showing multiple colon polyps, rectosigmoid ulcer, and gastritis Plan: - Advance diet as tolerated - Continue with antibiotic therapy as per ID - Await biopsy results from EGD and colonoscopy - H/H stable, continue to monitor, no evidence of GI bleeding on examination today - Maintain bowel regimen to prevent chronic constipation - No ongoing GI issues, will sign off case. Suggest subsequent outpatient follow up. Please reconsult as necessary, thank you. Case discussed with Dr. Peña.
[2017-02-04] MEDS: Sodium Chloride 0.9% 1,000 ML IV SCH (15:55)
--- NOTE | 2017-02-04 19:17 | CP.PCM.PN ---
Subjective - Date & Time of Evaluation Date of Evaluation: 02/04/17 Time of Evaluation: 09:00 - Subjective Subjective: improving slowly rx in progress orders renewed Objective - Vital Signs/Intake and Output Vital Signs (last 24 hours): Temp Pulse Resp BP Pulse Ox 98.2 F 62 20 146/62 96 02/04/17 15:00 02/04/17 15:00 02/04/17 15:00 02/04/17 15:00 02/04/17 15:12 - Medications Medications: Current Medications Acetaminophen (Tylenol 325mg Tab) 650 mg PO Q6 PRN PRN Reason: Fever >100.4 F Last Admin: 02/01/17 08:06 Dose: 650 mg Amlodipine Besylate (Norvasc) 10 mg PO DAILY [facility] Last Admin: 02/04/17 08:39 Dose: 10 mg Enoxaparin Sodium (Lovenox) 30 mg SC DAILY [facility] Last Admin: 02/04/17 12:41 Dose: Not Given Escitalopram Oxalate (Lexapro) 10 mg PO DAILY [facility] Last Admin: 02/04/17 12:41 Dose: Not Given Aztreonam 1 gm/ Sodium (Chloride) 100 mls @ 100 mls/hr IVPB Q8H [facility] Last Admin: 02/04/17 15:55 Dose: 100 mls/hr Metronidazole (Flagyl) 500 mg in 100 mls @ 100 mls/hr IVPB Q8 [facility] Last Admin: 02/04/17 14:47 Dose: 100 mls/hr Insulin Aspart (Novolog) 0 unit SC ACHS [facility] PRN Reason: Protocol Last Admin: 02/04/17 17:10 Dose: 1 unit Insulin Glargine (Lantus) 20 unit SC DAILY [facility] Last Admin: 02/04/17 12:41 Dose: Not Given Lisinopril (Zestril) 10 mg PO DAILY [facility] Last Admin: 02/04/17 08:39 Dose: 10 mg Pantoprazole Sodium (Protonix Ec Tab) 40 mg PO DAILY [facility] Last Admin: 02/04/17 12:42 Dose: Not Given Polyethylene Glycol (Miralax) 17 gm PO DAILY [facility] Sitagliptin Phosphate (Januvia) 50 mg PO DAILY [facility] Last Admin: 02/04/17 12:41 Dose: Not Given Zolpidem Tartrate (Ambien) 5 mg PO HS PRN PRN Reason: Insomnia Last Admin: 01/30/17 21:50 Dose: 5 mg - Labs Labs: 02/04/17 06:29 02/03/17 11:23 - Constitutional Appears: Non-toxic, Chronically Ill - Head Exam Head Exam: NORMOCEPHALIC - Eye Exam Eye Exam: PERRL - ENT Exam ENT Exam: Mucous Membranes Dry - Neck Exam Neck Exam: Full ROM - Respiratory Exam Respiratory Exam: Decreased Breath Sounds - Cardiovascular Exam Cardiovascular Exam: REGULAR RHYTHM - GI/Abdominal Exam GI & Abdominal Exam: Distended - Rectal Exam Rectal Exam: Deferred Assessment and Plan (1) Diabetes mellitus Status: Chronic (2) Hypertension Status: Chronic (3) Abdominal pain Status: Acute
[2017-02-04 23:07] LABS: RBC URINE 1 /hpf (0-3); URINE BACTERIA OCC (<OCC); URINE BILIRUBIN NEGATIVE (NEGATIVE); URINE BLOOD NEGATIVE (NEGATIVE); URINE COLOR Yellow (YELLOW); URINE GLUCOSE (UA) 1+ mg/dL (Normal); URINE KETONE TRACE mg/dL (NEGATIVE); URINE LEUKOCYTE ESTERASE TRACE Leu/uL (Negative); URINE PROTEIN 2+ mg/dL (NEGATIVE); URINE UROBILINOGEN NORMAL mg/dL (0.2-1.0); WBC URINE 10 /hpf (0-5)
[2017-02-05] MEDS: Aztreonam 1 GM in Sodium Chloride 0.9% 100 ML IVPB SCH ×2 (00:12→09:42)
--- NOTE | 2017-02-05 00:16 | CP.PCM.PN ---
Subjective - Date & Time of Evaluation Date of Evaluation: 02/03/17 - Subjective Subjective: FOR ENDOSCOPY IN AM, NO FEVER, NO SOB, SHE HAS DYSURIA Objective - Vital Signs/Intake and Output Vital Signs (last 24 hours): Temp Pulse Resp BP Pulse Ox 98.2 F 62 20 146/62 96 02/04/17 15:00 02/04/17 15:00 02/04/17 15:00 02/04/17 15:00 02/04/17 15:12 Intake and Output: 02/04/17 02/05/17 18:59 06:59 Intake Total 1080 Output Total 1 Balance 1079 - Medications Medications: Current Medications Acetaminophen (Tylenol 325mg Tab) 650 mg PO Q6 PRN PRN Reason: Fever >100.4 F Last Admin: 02/01/17 08:06 Dose: 650 mg Amlodipine Besylate (Norvasc) 10 mg PO DAILY [facility] Last Admin: 02/04/17 08:39 Dose: 10 mg Enoxaparin Sodium (Lovenox) 30 mg SC DAILY [facility] Last Admin: 02/04/17 12:41 Dose: Not Given Escitalopram Oxalate (Lexapro) 10 mg PO DAILY [facility] Last Admin: 02/04/17 12:41 Dose: Not Given Aztreonam 1 gm/ Sodium (Chloride) 100 mls @ 100 mls/hr IVPB Q8H [facility] Last Admin: 02/04/17 15:55 Dose: 100 mls/hr Metronidazole (Flagyl) 500 mg in 100 mls @ 100 mls/hr IVPB Q8 [facility] Last Admin: 02/04/17 22:18 Dose: 100 mls/hr Insulin Aspart (Novolog) 0 unit SC ACHS [facility] PRN Reason: Protocol Last Admin: 02/04/17 17:10 Dose: 1 unit Insulin Glargine (Lantus) 20 unit SC DAILY [facility] Last Admin: 02/04/17 12:41 Dose: Not Given Lisinopril (Zestril) 10 mg PO DAILY [facility] Last Admin: 02/04/17 08:39 Dose: 10 mg Pantoprazole Sodium (Protonix Ec Tab) 40 mg PO DAILY [facility] Last Admin: 02/04/17 12:42 Dose: Not Given Polyethylene Glycol (Miralax) 17 gm PO DAILY [facility] Sitagliptin Phosphate (Januvia) 50 mg PO DAILY [facility] Last Admin: 02/04/17 12:41 Dose: Not Given Zolpidem Tartrate (Ambien) 5 mg PO HS PRN PRN Reason: Insomnia Last Admin: 01/30/17 21:50 Dose: 5 mg - Labs Labs: 02/04/17 06:29 02/03/17 11:23 - Constitutional Appears: Non-toxic, No Acute Distress - Head Exam Head Exam: ATRAUMATIC, NORMAL INSPECTION, NORMOCEPHALIC - Eye Exam Eye Exam: EOMI, Normal appearance, PERRL Pupil Exam: NORMAL ACCOMODATION - ENT Exam ENT Exam: Mucous Membranes Moist, Normal Exam, Normal Oropharynx, TM's Normal Bilaterally - Neck Exam Neck Exam: Normal Inspection - Respiratory Exam Respiratory Exam: Clear to Ausculation Bilateral, NORMAL BREATHING PATTERN - Cardiovascular Exam Cardiovascular Exam: REGULAR RHYTHM, +S1, +S2 - GI/Abdominal Exam GI & Abdominal Exam: Soft, Tenderness, Normal Bowel Sounds - Rectal Exam Rectal Exam: NORMAL INSPECTION - Extremities Exam Extremities Exam: Normal Capillary Refill - Neurological Exam Neurological Exam: Abnormal Gait, Alert, Awake, CN II-XII Intact, Oriented x3 Assessment and Plan (1) Hypertension Status: Chronic (2) Diabetes mellitus Status: Chronic (3) Abdominal pain Assessment & Plan: UTI, R/O PUD Status: Acute (4) UTI (lower urinary tract infection) Status: Acute
--- NOTE | 2017-02-05 00:18 | CP.PCM.PN ---
Subjective - Date & Time of Evaluation Date of Evaluation: 02/04/17 - Subjective Subjective: FEELS BETTER, NO SOB, NO CHEST PAIN,LESS ABDOMINAL PAIN Objective - Vital Signs/Intake and Output Vital Signs (last 24 hours): Temp Pulse Resp BP Pulse Ox 98.2 F 62 20 146/62 96 02/04/17 15:00 02/04/17 15:00 02/04/17 15:00 02/04/17 15:00 02/04/17 15:12 Intake and Output: 02/04/17 02/05/17 18:59 06:59 Intake Total 1080 Output Total 1 Balance 1079 - Medications Medications: Current Medications Acetaminophen (Tylenol 325mg Tab) 650 mg PO Q6 PRN PRN Reason: Fever >100.4 F Last Admin: 02/01/17 08:06 Dose: 650 mg Amlodipine Besylate (Norvasc) 10 mg PO DAILY [facility] Last Admin: 02/04/17 08:39 Dose: 10 mg Enoxaparin Sodium (Lovenox) 30 mg SC DAILY [facility] Last Admin: 02/04/17 12:41 Dose: Not Given Escitalopram Oxalate (Lexapro) 10 mg PO DAILY [facility] Last Admin: 02/04/17 12:41 Dose: Not Given Aztreonam 1 gm/ Sodium (Chloride) 100 mls @ 100 mls/hr IVPB Q8H [facility] Last Admin: 02/05/17 00:12 Dose: 100 mls/hr Metronidazole (Flagyl) 500 mg in 100 mls @ 100 mls/hr IVPB Q8 [facility] Last Admin: 02/04/17 22:18 Dose: 100 mls/hr Insulin Aspart (Novolog) 0 unit SC ACHS [facility] PRN Reason: Protocol Last Admin: 02/04/17 17:10 Dose: 1 unit Insulin Glargine (Lantus) 20 unit SC DAILY [facility] Last Admin: 02/04/17 12:41 Dose: Not Given Lisinopril (Zestril) 10 mg PO DAILY [facility] Last Admin: 02/04/17 08:39 Dose: 10 mg Pantoprazole Sodium (Protonix Ec Tab) 40 mg PO DAILY [facility] Last Admin: 02/04/17 12:42 Dose: Not Given Polyethylene Glycol (Miralax) 17 gm PO DAILY [facility] Sitagliptin Phosphate (Januvia) 50 mg PO DAILY [facility] Last Admin: 02/04/17 12:41 Dose: Not Given Zolpidem Tartrate (Ambien) 5 mg PO HS PRN PRN Reason: Insomnia Last Admin: 01/30/17 21:50 Dose: 5 mg - Labs Labs: 02/04/17 06:29 02/03/17 11:23 - Constitutional Appears: Non-toxic, No Acute Distress - Head Exam Head Exam: ATRAUMATIC, NORMAL INSPECTION, NORMOCEPHALIC - Eye Exam Eye Exam: EOMI, Normal appearance, PERRL Pupil Exam: NORMAL ACCOMODATION - ENT Exam ENT Exam: Mucous Membranes Moist, Normal Exam, Normal Oropharynx, TM's Normal Bilaterally - Respiratory Exam Respiratory Exam: Clear to Ausculation Bilateral, NORMAL BREATHING PATTERN - Cardiovascular Exam Cardiovascular Exam: REGULAR RHYTHM, +S1, +S2 - GI/Abdominal Exam GI & Abdominal Exam: Soft, Tenderness, Normal Bowel Sounds - Rectal Exam Rectal Exam: NORMAL INSPECTION - Neurological Exam Neurological Exam: Abnormal Gait, Alert, Awake, CN II-XII Intact, Oriented x3 Assessment and Plan (1) Hypertension Status: Chronic (2) Diabetes mellitus Status: Chronic (3) Abdominal pain Status: Acute (4) UTI (lower urinary tract infection) Status: Acute
[2017-02-05] MEDS: metroNIDAZOLE IV 500 mg/100 ml 500 MG/100 ML BAG IVPB SCH ×2 (05:14→13:23)
[2017-02-05 07:13] LABS: BASO % 0.5 % (0.0-2.0); EOS # 0.1 K/uL (0.0-0.7); EOS % 1.9 % (0.0-4.0); HEMATOCRIT 29.4 % (34.0-47.0); LYMPH # 0.6 K/uL (1.0-4.3); LYMPH % 9.5 % (20.0-40.0); MEAN CELL VOLUME 83.2 fL (81.0-99.0); MEAN CORPUSCULAR HEMOGLOBIN 27.7 pg (27.0-31.0); MEAN CORPUSCULAR HGB CONC 33.3 g/dL (33.0-37.0); MEAN PLATELET VOLUME 8.4 fL (7.2-11.7); MONO # 0.5 K/uL (0.0-0.8); MONO % 8.8 % (0.0-10.0); NRBC % 0.1 % (0.0-2.0); PLATELET COUNT 309 K/uL (130-400); RED CELL DISTRIBUTION WIDTH 13.8 % (11.5-14.5); WHITE BLOOD COUNT 6.3 K/uL (4.8-10.8)
[2017-02-05 07:26] LABS: CHLORIDE 107 mmol/L (98-107); POTASSIUM 3.4 mmol/L (3.6-5.2); SODIUM 140 mmol/L (132-148)
[2017-02-05 07:28] LABS: GFR AFRICAN-AMERICAN > 60
[2017-02-05 07:29] LABS: BLOOD UREA NITROGEN 14 mg/dL (7-17); CALCIUM 8.1 mg/dl (8.6-10.4); CARBON DIOXIDE 22 mmol/L (22-30); GLUCOSE,RANDOM 167 mg/dL (65-105)
[2017-02-05 07:39] VITALS: BP 157/70; PULSE 60; TEMP 98.7; O2SAT 95
[2017-02-05] MEDS: (Novolog) Insulin Aspart, Recombinant 100 u/ml 10 ml vial SC SCH ×2 (08:19→12:15)
[2017-02-05 08:55] LABS: EOSINOPHIL 1 % (0-4); NEUTROPHIL 79 % (50-75); TOTAL CELLS COUNTED 100
[2017-02-05] MEDS: Pantoprazole 40 mg EC Tab PO SCH (09:37)
[2017-02-05] MEDS: (Lantus) Insulin Glargine, Recombinant SC SCH (09:37)
[2017-02-05] MEDS: Enoxaparin 30 mg Syringe SC SCH (09:38)
[2017-02-05] MEDS ORDERED: POLYETHYLENE GLYCOL 3350 17 GM/Dose PACKET PO SCH (10:00)
--- NOTE | 2017-02-05 13:50 | CP.PCM.PN ---
Subjective - Date & Time of Evaluation Date of Evaluation: 02/05/17 Time of Evaluation: 11:00 - Subjective Subjective: Pt seen today, awake, alert, denies any abdominal pain, N/V/D, tolerating diet a febrile s/p EGD/COLONOSCOPY YESTERDAY (showing multiple colon polyps, rectosigmoid ulcer , and gastritis.) see full report for details Objective - Vital Signs/Intake and Output Vital Signs (last 24 hours): Temp Pulse Resp BP Pulse Ox 98.7 F 60 20 157/70 H 95 02/05/17 07:38 02/05/17 07:38 02/05/17 07:38 02/05/17 07:38 02/05/17 07:38 Intake and Output: 02/05/17 02/05/17 06:59 18:59 Intake Total 1680 Output Total 1 Balance 1679 - Medications Medications: Current Medications Acetaminophen (Tylenol 325mg Tab) 650 mg PO Q6 PRN PRN Reason: Fever >100.4 F Last Admin: 02/01/17 08:06 Dose: 650 mg Amlodipine Besylate (Norvasc) 10 mg PO DAILY [facility] Last Admin: 02/05/17 09:37 Dose: 10 mg Enoxaparin Sodium (Lovenox) 30 mg SC DAILY [facility] Last Admin: 02/05/17 09:38 Dose: 30 mg Escitalopram Oxalate (Lexapro) 10 mg PO DAILY [facility] Last Admin: 02/05/17 09:37 Dose: 10 mg Aztreonam 1 gm/ Sodium (Chloride) 100 mls @ 100 mls/hr IVPB Q8H [facility] Last Admin: 02/05/17 09:42 Dose: 100 mls/hr Metronidazole (Flagyl) 500 mg in 100 mls @ 100 mls/hr IVPB Q8 [facility] Last Admin: 02/05/17 13:23 Dose: 100 mls/hr Insulin Aspart (Novolog) 0 unit SC ACHS [facility] PRN Reason: Protocol Last Admin: 02/05/17 12:15 Dose: 3 unit Insulin Glargine (Lantus) 20 unit SC DAILY [facility] Last Admin: 02/05/17 09:37 Dose: 20 units Lisinopril (Zestril) 10 mg PO DAILY [facility] Last Admin: 02/05/17 09:37 Dose: 10 mg Pantoprazole Sodium (Protonix Ec Tab) 40 mg PO DAILY [facility] Last Admin: 02/05/17 09:37 Dose: 40 mg Polyethylene Glycol (Miralax) 17 gm PO DAILY [facility] Last Admin: 02/05/17 09:38 Dose: Not Given Potassium Chloride (K-Dur 20 Meq Er Tab) 40 meq PO ONCE ONE Stop: 02/05/17 14:01 Last Admin: 02/05/17 13:23 Dose: 40 meq Sitagliptin Phosphate (Januvia) 50 mg PO DAILY [facility] Last Admin: 02/05/17 09:37 Dose: 50 mg Zolpidem Tartrate (Ambien) 5 mg PO HS PRN PRN Reason: Insomnia Last Admin: 01/30/17 21:50 Dose: 5 mg - Labs Labs: 02/05/17 06:57 02/05/17 06:57 Assessment and Plan - Assessment and Plan (Free Text) Assessment: A/P 81 yr old female admitted for fever, abdominal pain,UTI Acute renal failure, Fever, Dehydration bun and cr - improved after hydration-0.8 <1.8\ hgb- stable s/p EGD/COLONOSCOPY urine culture- positive for klebesella .p and started on fortaz , sensitive to cipro , pt will be disharge home with 7 more days of cipro for UTI pt clinically improved seen by Dr. Peña , today cleared for dsicharge home otday and f/u with Dr. Peña office next Thursday
[2017-02-05] MEDS ORDERED: Potassium Chloride 20 mEq ER Tab PO ONE (14:00)
--- NOTE | 2017-02-05 22:20 | CP.PCM.DIS ---
Provider - Provider Date of Admission: 01/30/17 14:07 Attending physician: Sarbjit Peña MD Diagnosis - Discharge Diagnosis (1) Hypertension Status: Chronic Priority: Low (2) Diabetes mellitus Status: Chronic Priority: Low (3) Abdominal pain Status: Acute Priority: High (4) UTI (lower urinary tract infection) Status: Acute Hospital Course - Lab Results Lab Results: Micro Results 01/31/17 11:00 Blood Blood Culture - Final NO GROWTH AFTER 5 DAYS 01/31/17 11:00 Blood Gram Stain - Final TEST NOT PERFORMED 01/31/17 11:30 Blood Blood Culture - Final NO GROWTH AFTER 5 DAYS 01/31/17 11:30 Blood Gram Stain - Final TEST NOT PERFORMED 01/30/17 Unknown Urine Urine Culture - Final Klebsiella Pneumoniae Ssp Pneu Most Recent Lab Values WBC 6.3 K/uL (4.8-10.8) 02/05/17 06:57 RBC 3.53 Mil/uL (3.80-5.20) L 02/05/17 06:57 Hgb 9.8 g/dL (11.0-16.0) L 02/05/17 06:57 Hct 29.4 % (34.0-47.0) L 02/05/17 06:57 MCV 83.2 fL (81.0-99.0) 02/05/17 06:57 MCH 27.7 pg (27.0-31.0) 02/05/17 06:57 MCHC 33.3 g/dL (33.0-37.0) 02/05/17 06:57 RDW 13.8 % (11.5-14.5) 02/05/17 06:57 Plt Count 309 K/uL (130-400) 02/05/17 06:57 MPV 8.4 fL (7.2-11.7) 02/05/17 06:57 Neut % (Auto) 79.3 % (50.0-75.0) H 02/05/17 06:57 Lymph % (Auto) 9.5 % (20.0-40.0) L 02/05/17 06:57 [place] % (Auto) 8.8 % (0.0-10.0) 02/05/17 06:57 Eos % (Auto) 1.9 % (0.0-4.0) 02/05/17 06:57 Baso % (Auto) 0.5 % (0.0-2.0) 02/05/17 06:57 Neut # 5.0 K/uL (1.8-7.0) 02/05/17 06:57 Lymph # 0.6 K/uL (1.0-4.3) L 02/05/17 06:57 [place] # 0.5 K/uL (0.0-0.8) 02/05/17 06:57 Eos # 0.1 K/uL (0.0-0.7) 02/05/17 06:57 Baso # 0.0 K/uL (0.0-0.2) 02/05/17 06:57 Neutrophils % (Manual) 79 % (50-75) H 02/05/17 06:57 Band Neutrophils % 1 % (0-2) 02/05/17 06:57 Lymphocytes % (Manual) 11 % (20-40) L 02/05/17 06:57 Monocytes % (Manual) 8 % (0-10) 02/05/17 06:57 Eosinophils % (Manual) 1 % (0-4) 02/05/17 06:57 Basophils % (Manual) 1 % (0-2) 01/31/17 11:34 Platelet Estimate Normal (NORMAL) 02/05/17 06:57 Polychromasia Slight 01/31/17 11:34 Hypochromasia (manual) Slight 02/05/17 06:57 Poikilocytosis (manual Slight 02/05/17 06:57 Basophilic Stippling Slight 02/03/17 11:20 Anisocytosis (manual) Slight 02/05/17 06:57 Ovalocytes Slight 02/03/17 11:20 pO2 27 mm/Hg (30-55) L 01/30/17 12:48 VBG pH 7.40 (7.32-7.43) 01/30/17 12:48 VBG pCO2 34 mmHg (40-60) L 01/30/17 12:48 VBG HCO3 21.3 mmol/L 01/30/17 12:48 VBG Total CO2 22.1 mmol/L (22-28) 01/30/17 12:48 VBG O2 Sat (Calc) 67.7 % (40-65) H 01/30/17 12:48 VBG Base Excess -3.0 mmol/L (0.0-2.0) L 01/30/17 12:48 VBG Potassium 4.2 mmol/L (3.6-5.2) 01/30/17 12:48 Sodium 137.0 mmol/l (132-148) 01/30/17 12:48 Chloride 105.0 mmol/L (98-107) 01/30/17 12:48 Glucose 272 mg/dl (65-105) H 01/30/17 12:48 Lactate 1.6 mmol/L (0.7-2.1) 01/30/17 12:48 Sodium 140 mmol/L (132-148) 02/05/17 06:57 Potassium 3.4 mmol/L (3.6-5.2) L 02/05/17 06:57 Chloride 107 mmol/L (98-107) 02/05/17 06:57 Carbon Dioxide 22 mmol/L (22-30) 02/05/17 06:57 Anion Gap 14 (10-20) 02/05/17 06:57 BUN 14 mg/dL (7-17) 02/05/17 06:57 Creatinine 0.8 MG/DL (0.7-1.2) 02/05/17 06:57 Est GFR ( Amer) > 60 02/05/17 06:57 Est GFR (Non-Af Amer) > 60 02/05/17 06:57 POC Glucose (mg/dL) 263 mg/dL (65-110) H 02/05/17 10:56 Random Glucose 167 mg/dL (65-105) H 02/05/17 06:57 Calcium 8.1 mg/dl (8.6-10.4) L 02/05/17 06:57 Total Bilirubin 0.4 mg/dL (0.2-1.3) 02/03/17 11:23 AST 41 U/L (14-36) H D 02/03/17 11:23 ALT 39 U/L (9-52) 02/03/17 11:23 Alkaline Phosphatase 92 U/L (38-126) 02/03/17 11:23 Total Protein 5.9 g/dL (6.3-8.3) L 02/03/17 11:23 Albumin 2.7 g/dL (3.5-5.0) L 02/03/17 11:23 Globulin 3.3 gm/dL (2.2-3.9) 02/03/17 11:23 Albumin/Globulin Ratio 0.8 (1.0-2.1) L 02/03/17 11:23 Venous Blood Potassium 4.2 mmol/L (3.6-5.2) 01/30/17 12:48 Urine Color Yellow (YELLOW) 02/04/17 22:57 Urine Clarity Clear (Clear) 02/04/17 22:57 Urine pH 5.0 (5.0-8.0) 02/04/17 22:57 Ur Specific [place] 1.013 (1.003-1.030) 02/04/17 22:57 Urine Protein 2+ mg/dL (NEGATIVE) H 02/04/17 22:57 Urine Glucose (UA) 1+ mg/dL (Normal) 02/04/17 22:57 Urine Ketones Trace mg/dL (NEGATIVE) 02/04/17 22:57 Urine Blood Negative (NEGATIVE) 02/04/17 22:57 Urine Nitrate Negative (NEGATIVE) 02/04/17 22:57 Urine Bilirubin Negative (NEGATIVE) 02/04/17 22:57 Urine Urobilinogen Normal mg/dL (0.2-1.0) 02/04/17 22:57 Ur Leukocyte Esterase Trace [place]/uL (Negative) 02/04/17 22:57 Urine WBC (Auto) 10 /hpf (0-5) H 02/04/17 22:57 Urine RBC (Auto) 1 /hpf (0-3) 02/04/17 22:57 Urine WBC Clumps (Auto) Few /hpf (NONE) H 01/30/17 13:25 Ur Squamous Epith Cells < 1 /hpf (0-5) 02/04/17 22:57 Urine Bacteria Occ (<OCC) H 02/04/17 22:57 - Hospital Course Hospital Course: ADMITTED WITH ABDOMINAL PAIN, WEAKNESS AND HE WAS FOUND TO HAVE UTI AND THEN SE UNDERWENT COLONOSCOPY AND EGD AND HE WAS TREATED WITH IV ANTIBIOTICS AND SHE IS FOR DISCHARGE Discharge Exam - Head Exam Head Exam: ATRAUMATIC, NORMAL INSPECTION, NORMOCEPHALIC - Eye Exam Eye Exam: EOMI, Normal appearance, PERRL Pupil Exam: NORMAL ACCOMODATION - ENT Exam ENT Exam: Mucous Membranes Moist, Normal Exam, Normal Oropharynx, TM's Normal Bilaterally - Neck Exam Neck exam: Normal Inspection - Respiratory Exam Respiratory Exam: NORMAL BREATHING PATTERN - Cardiovascular Exam Cardiovascular Exam: REGULAR RHYTHM, +S1, +S2 - GI/Abdominal Exam GI & Abdominal Exam: Normal Bowel Sounds, Unremarkable - Rectal Exam Rectal Exam: NORMAL INSPECTION - Neurological Exam Neurological exam: Abnormal Gait, Alert, CN II-XII Intact, Oriented x3, Reflexes Normal - Psychiatric Exam Psychiatric exam: Anxious, Depressed, Flat Affect - Skin Skin Exam: Intact Discharge Plan - Discharge Medications Prescriptions: Ciprofloxacin HCl [Cipro] 500 mg PO BID 7 Days Polyethylene Glycol 3350 [Miralax] 17 gm PO DAILY 20 Days - Follow Up Plan Condition: STABLE Disposition: HOME/ ROUTINE Instructions: Ciprofloxacin (By mouth), Polyethylene Glycol 3350 (By mouth), Dehydration (DC), Acute Kidney Injury (DC), Urinary Tract Infection in Women (DC ), Fever in Adults (GEN) Additional Instructions: Please f/u with Dr. Peña offjagdish next thursday continue medication as per Med. rec. Referrals: Sarbjit Peña MD [Staff Provider] -
== END 2017-02-05 14:22 | disposition home or self-care (01) | DRG 394 ==
LOC: C.ER 12:06 → EEVIPCON 14:07 → C.9E 14:07 → EEVIPCON 14:07 → OBSVTOIN 14:07 → C.3T 14:57
PROVIDERS: ADMIT Internal Medicine; ATTEND Internal Medicine
PROC: 0DB88ZX Excision of Small Intestine, Via Natural or Artificial Opening Endoscopic, Diagnostic (ICD-10-PCS; 2017-02-04)
PROC: 0DBN8ZX Excision of Sigmoid Colon, Via Natural or Artificial Opening Endoscopic, Diagnostic (ICD-10-PCS; principal; 2017-02-04 12:20)
PROC: 0DBL8ZX Excision of Transverse Colon, Via Natural or Artificial Opening Endoscopic, Diagnostic (ICD-10-PCS; 2017-02-04 12:20)
DX: K63.5 Polyp of colon (principal); N39.0 Urinary tract infection, site not specified; N17.9 Acute kidney failure, unspecified; K63.3 Ulcer of intestine; E11.22 Type 2 diabetes mellitus with diabetic chronic kidney disease; K76.0 Fatty (change of) liver, not elsewhere classified; N18.3 Chronic kidney disease, stage 3 (moderate); K92.2 Gastrointestinal hemorrhage, unspecified; E86.0 Dehydration; K57.30 Diverticulosis of large intestine without perforation or abscess without bleeding; K29.70 Gastritis, unspecified, without bleeding; D64.9 Anemia, unspecified; E78.00 Pure hypercholesterolemia, unspecified; Z79.4 Long term (current) use of insulin; R63.4 Abnormal weight loss; I12.9 Hypertensive chronic kidney disease with stage 1 through stage 4 chronic kidney disease, or unspecified chronic kidney disease; K59.09 Other constipation; K64.0 First degree hemorrhoids